=== PATIENT | female | born 1945 | race Caucasian/White ===

== ENCOUNTER 2016-04-14 17:06 | Inpatient (IN) | payer OTHER, MEDICARE ==
--- NOTE | ~2016-04-14 | HP ---
History And Physical [id number] [place]. [address] NAME: AMA ORTIZ : 49 STATUS : ADM IN [facility]#: [id number] AGE: 70 ADM/REG DATE : 04/14/16 MR#: [id number] REPORT SERV DATE: 04/14/16 DICTATED BY: PATRICK HENNESSY DATE: 04/14/16 REPORT STATUS : Draft TRANSCRIBED BY: MODAnnie DATE: 04/14/16 DATE OF ADMISSION: 04/14/2016 CHIEF COMPLAINT: Possible pneumonia. HISTORY OF PRESENT ILLNESS: The patient is a 70-year-old female followed by Dr. Lasha Kapoor, presented to his office today with fever, complains of shortness of breath, in his office reportedly her sat was 88%. She had a fever and by Dr. Kapoor's exam thought to have pneumonia, so she has been referred to the hospital as a direct admission for further treatment and evaluation. In talking to this patient, this patient reported that earlier on she had confusion, she could not keep track of her time, she had called her at work and was not able to tell him the exact time. The came home early, brought her to Dr. Lasha Kapoor's office. She was acting somewhat strange, but she feels that she has now back to her baseline. She reported that she was having an anxiety attack during that time. She denied any nausea or vomiting. She has had some chest pain. She has had a fever but no chills. She has not had any diaphoresis. No sick contacts. She denies any cough or upper respiratory type symptoms. She does complain of chronic abdominal pain that had been there since tissue removal from the abdomen for the breast reconstruction. She has no urinary symptoms. She has had chronic back pain. She offers no other problems or complaints. REVIEW OF SYSTEMS: A 12-point review of systems was otherwise negative. PAST MEDICAL HISTORY: Significant for lymphoma, breast cancer. No history of diabetes, hypertension, heart disease, sleep apnea, pulmonary emboli, or any other lung disease. She does have breast cancer that is metastatic to the lung. PAST SURGICAL HISTORY: Significant for left mastectomy in 2012, reconstruction of the left breast in 2004, hysterectomy, two benign tumors removed from the right breast at age 19, cholecystectomy, diskectomy, back surgery, lymph node removal from the groin in 2009, abdominal laparoscopy for abdominal pain, left port placement, bone marrow biopsy, right lung biopsy in 2012 for cancer, colon biopsy done by Dr. Hunt. ALLERGIES: NO KNOWN DRUG ALLERGIES. HOME MEDICATIONS: She takes hydrocortisone 10 mg three times daily. She takes morphine sustained release 30 mg every eight hours. She takes immediate release morphine 15 mg every three hours as needed for pain. Zofran 8 mg. She is on Remeron 30 mg at bedtime, and multivitamins. SOCIAL HISTORY: She denies use of alcohol, tobacco, or illicit substances. FAMILY HISTORY: Significant for heart disease in the brother who at age 55. No history of breast cancer in the family. PHYSICAL EXAMINATION: History And Physical [address] [address] NAME: AMA ORTIZ : 49 STATUS : ADM IN [facility]#: [id number] AGE: 70 ADM/REG DATE : 04/14/16 MR#: [id number] REPORT SERV DATE: 04/14/16 DICTATED BY: PATRICK HENNESSY DATE: 04/14/16 REPORT STATUS : Draft TRANSCRIBED BY: FREIDA DATE: 04/14/16 GENERAL: White female, lying on the bed, appears to be in no obvious respiratory distress. She is awake, alert, she is oriented. VITAL SIGNS: Blood pressure is 112/55, temperature is 97.6, pulse of 115, respiratory rate of 18, O2 saturation of 96% on room air in the hospital. HEENT: Head is normocephalic, atraumatic. Pupils are equal, round, and reactive to light. Extraocular muscles are intact. Sclerae are anicteric. Conjunctiva is normal. Oropharynx without lesion. Tongue protrusion midline. Uvula midline. NECK: Supple. No jugular venous distention. No carotid bruits or thyromegaly is appreciated. No lymphadenopathy in the neck is palpable. HEART: Regular rate and rhythm. No murmurs, rubs, or gallops are heard. Mild tachycardia is noted. LUNGS: Clear to auscultation on the left side. There is significant rhonchi and rales noted in the right lung base. No significant evidence of consolidation. ABDOMEN: Scaphoid, soft, nontender, good bowel sounds. No rebound or guarding. No organomegaly. EXTREMITIES: Without cyanosis, clubbing, or edema. NEUROLOGIC: Completely normal. LAB STUDIES: All pending at this time. IMPRESSION: 1. Possibility of pneumonia. 2. History of breast cancer with active chemo. 3. Chronic pain syndrome. 4. Cumbola's disease. PLAN: The patient will be admitted. IV fluids will be given. IV antibiotics will be given. We will check routine labs for chest x-ray. Home medications to be addressed when available from the pharmacy. At this time, she will be given pain control with IV Dilaudid, and then we can resume her morphine when exact doses are available. She remains a full code. SV/MODL Patrick Hennessy M.D. / [id number] CC: Saloni Muñoz M.D.
--- NOTE | ~2016-04-14 | DS ---
Discharge Summary [facility] [address] [facility] [place]. [address] NAME: AMA ORTIZ : 49 STATUS : ADM IN [facility]#: [id number] AGE: 70 ADM/REG DATE : 04/14/16 MR#: [id number] REPORT SERV DATE: 04/17/16 DICTATED BY: PATRICK HENNESSY DATE: 04/17/16 REPORT STATUS : Draft TRANSCRIBED BY: MODAnnie DATE: 04/17/16 ADMISSION DATE: 04/14/2016 DISCHARGE DATE: 04/17/2016 DISCHARGE DIAGNOSES: 1. Probable postobstructive pneumonia, right lung base. 2. Progression of metastatic breast cancer, stage IV. 3. Acute kidney injury. 4. Adrenal insufficiency due to metastatic disease. 5. Chronic pain syndrome. 6. Hyponatremia, now resolved. 7. Fall and metabolic encephalopathy, now resolved. 8. Abnormal liver function studies, currently resolved and normal. 9. Hypothyroidism. 10.Chronic pain syndrome. CONSULTANTS DURING THIS HOSPITALIZATION: Dr. Lasha Kapoor of Hematology-Oncology. INVASIVE PROCEDURES DONE DURING THIS HOSPITALIZATION: None. BRIEF HISTORY OF PRESENT ILLNESS: The patient is a 70-year-old female who presented from Dr. Lasha Kapoor's office as a direct admission with possibility of right lower lobe pneumonia. So she was admitted. For detailed history and physical exam, please see note dictated by myself on 04/14/2016. HOSPITAL COURSE: After being admitted to the hospital, this patient was pancultured. She was given IV antibiotics in thinking that she had metastatic cancer to the lungs. It was thought she had postobstructive pneumonia. So she was switched to Levaquin and Flagyl. She did not have a fever. Her blood cultures remained negative. A CT scan of the chest was done which showed progression of disease but no evidence of any definite pneumonia. She was noted to have acute kidney injury on her lab work. So she was given aggressive IV fluids. Her pain medications were continued. She was also noted to have abnormal liver function studies on admission. Strep antigen and Legionella antigens were done which were negative as well. She continued to improve and at this time she feels well enough. She is off the oxygen. She is saturating 95% on room air and she wants to go home and see Dr. Kapoor in followup in the outpatient setting. DISCHARGE DISPOSITION: Home. DISCHARGE ACTIVITY: As tolerated. DISCHARGE DIET: Low-sodium diet. DISCHARGE MEDICATIONS: Aspirin 162 mg once daily, Remeron 15 mg at bedtime and p.r.n. as needed for sleep, Prilosec 20 mg once daily p.r.n., oxycodone 20 mg three times daily, Levaquin 750 mg p.o. once daily, hair and skin multivitamins, diphenhydramine 50 mg daily Discharge Summary [address] [address] NAME: AMA ORTIZ : 49 STATUS : ADM IN PAT#: [id number] AGE: 70 ADM/REG DATE : 04/14/16 MR#: [id number] REPORT SERV DATE: 04/17/16 DICTATED BY: PATRICK HENNESSY DATE: 04/17/16 REPORT STATUS : Draft TRANSCRIBED BY: FREIDA DATE: 04/17/16 p.r.n., coenzyme Q10 one tablet daily, glucosamine chondroitin, hydrocortisone 1 tablet three times daily, Lorazepam 0.5 to 1 mg twice daily p.r.n. for anxiety, morphine IR 15 mg p.o. every six hours p.r.n., multivitamins, fish oil, Zofran 8 mg p.o. every 8 hours p.r.n. for nausea, and chemotherapy as per Dr. Kapoor. DISCHARGE FOLLOWUP: With Dr. Lasha Kapoor and . More than 30 minutes spent planning this patient's discharge, reconciling medications, writing prescriptions, discussing hospital care, and follow up with the patient and documenting this discharge. RAMONITA/FREIDA Patrick Hennessy M.D. / [id number] CC: Saloni Muñoz M.D.
[~2016-04-14 17:06] MED LIST: AMB10 PO; ASAB PO; ATV1 PO; AUG875 PO; BEN25 PO; CLARIT10 PO; CO Q-10100 MG PO; COQ-10200 MG OR; CORTEF5 PO; FISH-EPA1000 MG PO; GLUCCHONDR PO; HARD NAILS OR; LEVOTHYROXIN25 MCG PO; LUNESTA2 M1 OR; MELATONIN; MELATONIN1 M1 PO; MIRALAXPKT PO; MSCONTIN PO; MSIMMR15 PO; MSIMMREL PO; MULTIPLE VIT PO; OMEGA 3550 MG PO; OXECTA5 MG PO; OXYCON20 PO; PR25 PO; PRILOSEC OTC20 MG PO; PRILOSEC40 MG PO; PROBIOTIC PO; REG5 PO; REMERON30 MG PO; SUCR PO; TRAZ50 PO; ZANTAC 150 PO; ZOFRAN8 PO; ZYRTEC ALLGY10 MG PO; [UNRECOGNIZED DRUG - REMARK] PO
[2016-04-14 19:26] LABS: BASOPHILS 0.1 %; BASOPHILS ABSOLUTE 0.02 10/3/uL (0.0-0.16); EOSINOPHILS 0 %; HEMATOCRIT 33.7 % (36.0-48.0); HEMOGLOBIN 11.2 g/dL (12.0-16.0); IMMATURE GRANULOCYTES 0.7 %; LYMPHOCYTES 4.8 %; LYMPHOCYTES ABSOLUTE 0.68 10/3/uL (0.67-4.30); MEAN CORPUS HGB CONC 33.2 g/dL (32.0-36.0); MEAN CORPUSCULAR HEMOGLOB 30.4 pg (26.0-34.0); MEAN CORPUSCULAR VOLUME 91.6 fL (80-100); MEAN PLATELET VOLUME 10.2 fL (9.2-13.0); MONOCYTES 5.1 %; MONOCYTES ABSOLUTE 0.73 10/3/uL (0.21-1.20); NEUTROPHILS 89.3 %; NEUTROPHILS ABSOLUTE 12.77 10/3/uL (2.02-8.40); PLATELET COUNT 258 10/3/uL (150-400); RBC DISTRIBUTION WIDTH 15.8 % (12.0-16.0); RED CELL COUNT 3.68 10/6/uL (4.0-5.6)
[2016-04-14 19:27] LABS: MANUAL DIFF NO %; WHITE BLOOD CELLS 14.3 10/3/uL (4.5-10.5)
[2016-04-14 19:49] LABS: A/G RATIO 0.9 (0.7-1.9); ALBUMIN 2.9 G/DL (3.5-5.0); ALKALINE PHOSPHATASE 168 U/L (45-117); BUN (BLOOD UREA NITROGEN) 22 MG/DL (6-23); CALCIUM, SERUM 9.6 MG/DL (8.5-10.4); CHLORIDE, SERUM 91 MMOL/L (96-112); CO2 (CARBON DIOXIDE) 28 MMOL/L (24-34); CREATININE 1.68 MG/DL (0.55-1.02); GFR AFRICAN AMERICAN 36 ML/MIN (>=60); GFR NON AFRICAN AMERICAN 31 ML/MIN (>=60); GLOBULIN 3.2 G/DL (2.5-4.1); GLUCOSE, SERUM 96 MG/DL (60-99); SGOT(AST) 93 U/L (5-40); SGPT(ALT) 91 U/L (5-65); SODIUM, SERUM 127 MMOL/L (135-148); TOTAL BILIRUBIN 0.8 MG/DL (0-1.2); TOTAL PROTEIN 6.1 G/DL (6.0-8.5); TROPONIN I 0.14 NG/ML (<0.05)
[2016-04-14 20:50] LABS: PROCALCITONIN 22.95 ng/mL (<0.5)
[2016-04-15 04:03] LABS: ALBUMIN 2.5 G/DL (3.5-5.0); BUN (BLOOD UREA NITROGEN) 25 MG/DL (6-23); CALCIUM, SERUM 9.5 MG/DL (8.5-10.4); CHLORIDE, SERUM 94 MMOL/L (96-112); CO2 (CARBON DIOXIDE) 28 MMOL/L (24-34); CREATININE 1.35 MG/DL (0.55-1.02); GFR AFRICAN AMERICAN 47 ML/MIN (>=60); GFR NON AFRICAN AMERICAN 40 ML/MIN (>=60); GLUCOSE, SERUM 106 MG/DL (60-99); PHOSPHORUS, SERUM 2.6 MG/DL (2.5-4.5); POTASSIUM, SERUM 4.3 MMOL/L (3.5-5.3); SODIUM, SERUM 130 MMOL/L (135-148)
[2016-04-15 04:05] LABS: TROPONIN I 0.08 NG/ML (<0.05)
[2016-04-15 04:50] LABS: BASOPHILS 0.1 %; BASOPHILS ABSOLUTE 0.01 10/3/uL (0.0-0.16); EOSINOPHILS 0.1 %; EOSINOPHILS ABSOLUTE 0.01 10/3/uL (0.0-0.53); IMMATURE GRANULOCYTES 0.9 %; IMMATURE GRANULOCYTES ABSOLUTE 0.13 10/3/uL (0.0-0.11); LYMPHOCYTES 5.1 %; LYMPHOCYTES ABSOLUTE 0.72 10/3/uL (0.67-4.30); MEAN CORPUS HGB CONC 33.4 g/dL (32.0-36.0); MEAN CORPUSCULAR HEMOGLOB 30.3 pg (26.0-34.0); MEAN CORPUSCULAR VOLUME 90.6 fL (80-100); MEAN PLATELET VOLUME 9.8 fL (9.2-13.0); MONOCYTES 3.9 %; MONOCYTES ABSOLUTE 0.55 10/3/uL (0.21-1.20); NEUTROPHILS 89.9 %; NEUTROPHILS ABSOLUTE 12.75 10/3/uL (2.02-8.40); PLATELET COUNT 232 10/3/uL (150-400); RBC DISTRIBUTION WIDTH 15.9 % (12.0-16.0); WHITE BLOOD CELLS 14.2 10/3/uL (4.5-10.5)
[2016-04-15 04:53] LABS: HEMATOCRIT 29.9 % (36.0-48.0); MANUAL DIFF NO %
[2016-04-15] MEDS ORDERED: BEN25 PO ×2 (16:26→17:37)
[2016-04-15] MEDS ORDERED: OXYCON20 PO (16:27)
[2016-04-15] MEDS ORDERED: ASAB PO (17:36)
[2016-04-15] MEDS ORDERED: HAIR PO (17:37)
[2016-04-15] MEDS ORDERED: [UNRECOGNIZED DRUG - OTHER] PO (17:37)
[2016-04-15] MEDS ORDERED: GLUCCHONDR PO (17:38)
[2016-04-15] MEDS ORDERED: CO Q-10100 MG PO (17:38)
[2016-04-15] MEDS ORDERED: CORTEF5 PO (17:38)
[2016-04-15] MEDS ORDERED: ATV1 PO (17:39)
[2016-04-15] MEDS ORDERED: MSIMMR15 PO (17:39)
[2016-04-15] MEDS ORDERED: CENTRUM PO (17:39)
[2016-04-15] MEDS ORDERED: FISH-EPA1000 MG PO (17:40)
[2016-04-15] MEDS ORDERED: ZOFRAN8 PO (17:40)
[2016-04-15] MEDS ORDERED: PROTONIX PO (17:40)
[2016-04-15] MEDS ORDERED: OXYCONTIN30 MG PO (17:41)
[2016-04-15] MEDS ORDERED: CHEMOTHERAPY IV (17:44)
[2016-04-15] MEDS ORDERED: REMERON30 MG PO (17:45)
[2016-04-15] MEDS ORDERED: REM15 PO (17:46)
[2016-04-16 10:22] LABS: BASOPHILS 0.1 %; BASOPHILS ABSOLUTE 0.01 10/3/uL (0.0-0.16); EOSINOPHILS 0 %; HEMOGLOBIN 11.1 g/dL (12.0-16.0); IMMATURE GRANULOCYTES 0.7 %; IMMATURE GRANULOCYTES ABSOLUTE 0.08 10/3/uL (0.0-0.11); LYMPHOCYTES 7.8 %; LYMPHOCYTES ABSOLUTE 0.86 10/3/uL (0.67-4.30); MEAN CORPUS HGB CONC 33.7 g/dL (32.0-36.0); MEAN CORPUSCULAR VOLUME 91.9 fL (80-100); MEAN PLATELET VOLUME 9.6 fL (9.2-13.0); MONOCYTES 2.4 %; MONOCYTES ABSOLUTE 0.27 10/3/uL (0.21-1.20); NEUTROPHILS ABSOLUTE 9.84 10/3/uL (2.02-8.40); PLATELET COUNT 247 10/3/uL (150-400); RED CELL COUNT 3.58 10/6/uL (4.0-5.6); WHITE BLOOD CELLS 11.1 10/3/uL (4.5-10.5)
[2016-04-16 10:26] LABS: HEMATOCRIT 32.9 % (36.0-48.0); MANUAL DIFF NO %
[2016-04-16 10:34] LABS: ALBUMIN 2.6 G/DL (3.5-5.0); BUN (BLOOD UREA NITROGEN) 12 MG/DL (6-23); CALCIUM, SERUM 8.8 MG/DL (8.5-10.4); CHLORIDE, SERUM 111 MMOL/L (96-112); CO2 (CARBON DIOXIDE) 26 MMOL/L (24-34); CREATININE 0.98 MG/DL (0.55-1.02); GFR AFRICAN AMERICAN 69 ML/MIN (>=60); GFR NON AFRICAN AMERICAN 59 ML/MIN (>=60); GLUCOSE, SERUM 172 MG/DL (60-99); PHOSPHORUS, SERUM 3.1 MG/DL (2.5-4.5); POTASSIUM, SERUM 3.5 MMOL/L (3.5-5.3); SODIUM, SERUM 145 MMOL/L (135-148)
[2016-04-17 06:24] LABS: BASOPHILS 0.2 %; BASOPHILS ABSOLUTE 0.01 10/3/uL (0.0-0.16); EOSINOPHILS 0.6 %; EOSINOPHILS ABSOLUTE 0.04 10/3/uL (0.0-0.53); HEMOGLOBIN 9.2 g/dL (12.0-16.0); IMMATURE GRANULOCYTES 0.3 %; IMMATURE GRANULOCYTES ABSOLUTE 0.02 10/3/uL (0.0-0.11); LYMPHOCYTES 17.8 %; LYMPHOCYTES ABSOLUTE 1.14 10/3/uL (0.67-4.30); MEAN CORPUSCULAR VOLUME 90.9 fL (80-100); MEAN PLATELET VOLUME 9.6 fL (9.2-13.0); MONOCYTES ABSOLUTE 0.19 10/3/uL (0.21-1.20); NEUTROPHILS 78.1 %; PLATELET COUNT 237 10/3/uL (150-400); RBC DISTRIBUTION WIDTH 16.5 % (12.0-16.0); RED CELL COUNT 3.07 10/6/uL (4.0-5.6)
[2016-04-17 06:26] LABS: HEMATOCRIT 27.9 % (36.0-48.0); WHITE BLOOD CELLS 6.4 10/3/uL (4.5-10.5)
[2016-04-17 06:27] LABS: MANUAL DIFF NO %
[2016-04-17 06:31] LABS: A/G RATIO 0.7 (0.7-1.9); ALBUMIN 2.1 G/DL (3.5-5.0); CALCIUM, SERUM 7.9 MG/DL (8.5-10.4); CHLORIDE, SERUM 108 MMOL/L (96-112); CO2 (CARBON DIOXIDE) 25 MMOL/L (24-34); CREATININE 0.62 MG/DL (0.55-1.02); GFR AFRICAN AMERICAN 107 ML/MIN (>=60); GFR NON AFRICAN AMERICAN 93 ML/MIN (>=60); POTASSIUM, SERUM 3.2 MMOL/L (3.5-5.3); SGOT(AST) 27 U/L (5-40); SGPT(ALT) 35 U/L (5-65); SODIUM, SERUM 144 MMOL/L (135-148); TOTAL BILIRUBIN 0.4 MG/DL (0-1.2); TOTAL PROTEIN 5.1 G/DL (6.0-8.5)
[2016-04-17 06:32] LABS: ALKALINE PHOSPHATASE 102 U/L (45-117); BUN (BLOOD UREA NITROGEN) 8 MG/DL (6-23); GLUCOSE, SERUM 93 MG/DL (60-99)
[2016-04-17] MEDS ORDERED: LEVAQUIN750 MG PO (10:19)
[2016-07-08] MEDS ORDERED: MSIMMR15 PO (10:57)
[2016-07-08] MEDS ORDERED: PROTONIX PO (10:57)
[2016-07-08] MEDS ORDERED: ELIQUIS 5 MG TAB5 MG PO (10:57)
[2016-07-08] MEDS ORDERED: OXYCONTIN30 MG PO (10:57)
[2016-07-08] MEDS ORDERED: FLORASTOR250 MG PO (10:58)
[2016-07-08] MEDS ORDERED: CARDCD240 PO (10:58)
[2016-07-08] MEDS ORDERED: L40 PO (10:58)
[2016-07-08] MEDS ORDERED: KLOR-CON M2020 MEQ PO (10:59)
[2016-07-08] MEDS ORDERED: REM15 PO (10:59)
[2016-07-08] MEDS ORDERED: ZOFRAN8 PO (10:59)
[2016-07-08] MEDS ORDERED: ATV1 PO (10:59)
[2016-07-08] MEDS ORDERED: CORTEF5 PO (10:59)
[2016-07-08] MEDS ORDERED: FISH-EPA1000 MG PO (11:00)
[2016-07-08] MEDS ORDERED: CENTRUM PO (11:00)
[2016-07-08] MEDS ORDERED: TEARS PURE OPH (11:00)
[2016-07-08] MEDS ORDERED: MYCOSOINT TOP (11:00)
[2016-07-08] MEDS ORDERED: CO Q-10100 MG PO (11:01)
[2016-07-08] MEDS ORDERED: HAIR/SKIN/NAILS VIT PO (11:01)
[2016-07-08] MEDS ORDERED: CHEMO IV (11:02)
[2016-08-03] MEDS ORDERED: ASABAYER PO (13:03)
[2016-08-06] MEDS ORDERED: LEVAQUIN750 MG PO (15:06)
[2016-09-24] MEDS ORDERED: CARTIA XT240 MG/24 PO (16:08)
[2016-09-24] MEDS ORDERED: CONSTULOSE PO (16:09)
[2016-09-24] MEDS ORDERED: SPIRO50 PO (16:10)
[2016-09-24] MEDS ORDERED: ELIQUIS 5 MG TAB5 MG PO (16:12)
[2016-09-24] MEDS ORDERED: REFRESH OPH SO0.3 ML OPH (16:14)
[2016-09-26] MEDS ORDERED: OMNICEF300 PO (09:55)
[2016-09-26] MEDS ORDERED: MIRALAX POWDER1 PKT PO (09:56)
[2016-10-26] MEDS ORDERED: LAN125 PO (09:08)
[2016-10-26] MEDS ORDERED: REM15 PO (09:15)
[2016-10-30] MEDS ORDERED: ASAB PO (10:52)
[2016-10-30] MEDS ORDERED: BISR PR (10:55)
[2016-10-30] MEDS ORDERED: LEVAQUIN750 MG PO (11:00)
== END 2016-04-17 15:47 | disposition home or self-care (01) | DRG 180 ==
LOC: 2SO 17:06
PROVIDERS: Internal Medicine; Nurse Practitioner Family
DX: C78.00 Secondary malignant neoplasm of unspecified lung (principal); J18.9 Pneumonia, unspecified organism; G93.41 Metabolic encephalopathy; N17.9 Acute kidney failure, unspecified; C50.912 Malignant neoplasm of unspecified site of left female breast; E86.0 Dehydration; E27.1 Primary adrenocortical insufficiency; E27.40 Unspecified adrenocortical insufficiency; E87.1 Hypo-osmolality and hyponatremia; F41.0 Panic disorder [episodic paroxysmal anxiety]; E03.9 Hypothyroidism, unspecified; W18.30XA Fall on same level, unspecified, initial encounter; G89.29 Other chronic pain; Z98.890 Other specified postprocedural states; Z90.12 Acquired absence of left breast and nipple; Z85.72 Personal history of non-Hodgkin lymphomas; Z82.49 Family history of ischemic heart disease and other diseases of the circulatory system
CPT/HCPCS: 71020; 71260; 72170; 80053; 80069; 82330; 82962; 84132; 84145; 84484; 85025; 87040; 93005; A9270-GY; J0456; J1170; J1720; J1956; J2405; Q9967

== ENCOUNTER 2016-05-19 10:26 | Inpatient (IN) | payer OTHER, MEDICARE ==
--- NOTE | ~2016-05-19 | HP ---
History And Physical [id number] [facility] [place]. [address] NAME: AMA ORTIZ : 49 STATUS : ADM IN PAT#: [id number] AGE: 70 ADM/REG DATE : 05/19/16 MR#: [id number] REPORT SERV DATE: 05/19/16 DICTATED BY: ANNA ALONSO DATE: 05/19/16 REPORT STATUS : Draft TRANSCRIBED BY: MODL DATE: 05/19/16 DATE OF ADMISSION: 05/19/2016 CHIEF COMPLAINT: Heartburn, fever at home to 102, nausea, and vomiting. HISTORY OF PRESENT ILLNESS: This is a 70-year-old female who has undergone chemotherapy with Dr. Lasha Kapoor's office two days ago. She is getting Herceptin and gemcitabine. She states that with this new chemotherapy which she just got her second dose, she has had worsening heartburn. She said normally her heartburn relieved with Prilosec, Zantac, and Tums; however, currently it is not relieved. She has had some nausea, vomiting. She also has chronic abdominal pain, she says it may be worse now, slightly worse in the left lower quadrant. She did have a bowel movement yesterday. She had a fever of 102 x 1, currently afebrile in the ER. She states she stays cold. Denies any additional chills. She denies any dysuria. She had normal bowel movement yesterday. She also noted to start having some hoarseness today. REVIEW OF SYSTEMS: A complete review of systems was obtained and is negative with the exception of above HPI. PAST MEDICAL HISTORY: Includes stage IV breast cancer, initially diagnosed with breast cancer in 2002 with recurrence to the lung in 2011. She also has adrenal insufficiency due to metastatic disease. PAST SURGICAL HISTORY: Notable for mastectomy with TRAM flap, history of back surgery, cholecystectomy, diskectomy, also history of laparoscopy for abdominal pain, and left port placement. ALLERGIES: NO KNOWN DRUG ALLERGIES. FAMILY HISTORY: Negative for any cancer. SOCIAL HISTORY: Lives with her . Denies smoking or drinking. HOME MEDICATIONS: Aspirin 81 mg daily, coenzyme Q10 of 100 mg after supper, Benadryl p.r.n. for sleep, glucosamine chondroitin, Cortef 10 mg p.o. b.i.d., Ativan 1 mg at bedtime, Remeron 15 mg at bedtime and then p.r.n. for rest, immediate release morphine 15 mg every four hours p.r.n., Centrum tab, fish oil, Zofran p.r.n., OxyContin 20 t.i.d., and Protonix 40 mg daily status post second dose of Herceptin and gemcitabine. PHYSICAL EXAMINATION: VITAL SIGNS: Temperature 99.0, blood pressure 98/68, pulse of 148, respiratory rate 22, and saturating 88% on room air on admission. Heart rate has improved dramatically to the one teens and currently saturating in the mid 90s on 3 L. GENERAL: This is a chronically ill-appearing female, in no acute distress. She is pleasant and cooperative. She is alert and oriented x3. HEENT: Extraocular muscles are intact. Sclerae are anicteric. Mucous membranes are mildly History And Physical [address] [address] NAME: AMA ORTIZ : 49 STATUS : ADM IN [facility]#: [id number] AGE: 70 ADM/REG DATE : 05/19/16 MR#: [id number] REPORT SERV DATE: 05/19/16 DICTATED BY: ANNA ALONSO DATE: 05/19/16 REPORT STATUS : Draft TRANSCRIBED BY: FREIDA DATE: 05/19/16 dry. NECK: Supple. CARDIAC: Mildly tachycardic with no appreciable murmurs. LUNGS: Clear to auscultation bilaterally with no wheezes, rales, or rhonchi. ABDOMEN: Soft without obvious tenderness to palpation. EXTREMITIES: Warm, well perfused, with no edema. NEUROLOGIC: Cranial nerves 2 through 12 are grossly intact. Face is symmetric. Tongue is midline. Speech is fluent. PSYCHIATRIC: The patient is cooperative and appropriate. LABORATORY DATA: White blood cell count 4.6, hemoglobin 11, platelet count of 510. BMP with serum sodium 124, potassium 3.4, chloride 87. Lactate 0.9. Creatinine 1.1. Imaging including chest x-ray was notable for metastatic pulmonary nodules. No pneumonic- appearing infiltrate demonstrated. ASSESSMENT AND PLAN: 1. Heartburn with nausea and vomiting. Unclear if this is possibly related to her chemotherapy; however, Dr. Kapoor will follow along. We will continue antiemetics in addition to increasing PPI to twice a day. We will also have p.r.n. Tums available for her and add some Carafate. Given her age and her gender, we will also trend troponins, and EKG done in the emergency room shows no acute ischemia. She was noted to be in sinus tachycardia on admission, which has improved. 2. Mild acute kidney injury with hyponatremia. Suspect, the patient is volume depleted given she received chemo two days ago and she has had nausea, vomiting, and unable to keep anything down. We will hydrate her with normal saline and follow up with repeat blood work in the morning. 3. Hypokalemia, likely due to gastrointestinal losses. We will replete this and then follow up per protocol. 4. Abnormal LFTs. This has happened during previous admissions, which had resolved to normal. We will follow. 5. Mild anemia. The patient denies any evidence of blood loss likely related to chemotherapy and underlying chronic disease. We will follow. 6. Fever at home. We will monitor her here closely. She is not neutropenic. She does not have any obvious pneumonia on x-ray. We will continue to monitor her off antibiotics at this time. Blood cultures were drawn here, and we will follow up this and check a urine sample. 7. History of adrenal insufficiency. We will continue her home steroids. 8. Code status: The patient wishes to be a limited code status, no chest compressions and no intubations. 9. Deep vein thrombosis prophylaxis will be with enoxaparin. 10.Admission: The patient will be admitted inpatient to [facility]. NAEL/FREIDA Anna Kent History And Physical [address] [address] NAME: AMA ORTIZ : 49 STATUS : ADM IN [facility]#: [id number] AGE: 70 ADM/REG DATE : 05/19/16 MR#: [id number] REPORT SERV DATE: 05/19/16 DICTATED BY: ANNA ALONSO DATE: 05/19/16 REPORT STATUS : Draft TRANSCRIBED BY: FREIDA DATE: 05/19/16 MD Gavin / [id number] CC: Anna Alonso MD
--- NOTE | ~2016-05-19 | HP ---
History And Physical [id number] [place]. [address] NAME: AMA ORTIZ : 49 STATUS : ADM IN [facility]#: [id number] AGE: 70 ADM/REG DATE : 05/19/16 MR#: [id number] REPORT SERV DATE: 05/20/16 DICTATED BY: ANTONI MEI DATE: 05/20/16 REPORT STATUS : Draft TRANSCRIBED BY: MODL DATE: 05/20/16 DATE OF ADMISSION: 05/19/2016 The patient was admitted on the morning of 05/19/2016 for supportive care of dehydration, but late in the evening of 05/19/2016 and into the morning of 05/20/2016, the patient developed high fevers up to 104.0 with increasing tachycardia up to the 140s as well as tachypnea into the 30s and 40s and increasing hypoxia, now needing 5 L nasal cannula for an O2 saturation of 94%. As the evening progressed, the patient also had shown signs of increasing confusion to the point where she was having periods of overt disorientation and incoherence and was becoming borderline obtunded even with increasing lethargy, confusion, and agitation. This was quite disturbing to the staff and the patient's family. Once the fevers had begun in early evening shift, we obtained blood cultures and urinalysis and ordered a stat CT scan of the chest abdomen and pelvis. The patient was also started on broad-spectrum IV antibiotics including IV cefepime at 2 g IV q.6 and IV vancomycin. Repeat blood work showed deterioration in patient's infectious status with lowering of white blood cell count now with overt neutropenia with an absolute neutrophil count of 300. ABG showed hypoxia but no evidence of hypercapnic respiratory failure and a stat CT scan of the chest, abdomen, and pelvis showed no acute intraabdominal process, but the patient did have what looks like bilateral pneumonia changes possibly associated with her metastatic disease from breast cancer to her lungs. It was felt that the patient's clinical status has been deteriorating rapidly overnight despite supportive measures, so we have moved the patient to the intensive care unit in the director digital sales hours of 05/20/2016. It is clear that patient is on no intubation, but she and her family have agreed to BiPAP if necessary. She is also on no CPR, but the family and patient have agreed to pressors as needed in case the patient develops hypotension. By the time of transfer to the ICU, the patient's blood pressure was 106/50 and had been trending downward all night long. Total of 45 minutes at the bedside stabilizing patient was spent in critical care time. Primary diagnosis of sepsis, encephalopathy, and neutropenic fever. BETI/MODAnnie Antoni Mei M.D. / [id number] CC: History And Physical [address] [address] NAME: AMA ORTIZ : 49 STATUS : ADM IN [facility]#: [id number] AGE: 70 ADM/REG DATE : 05/19/16 MR#: [id number] REPORT SERV DATE: 05/20/16 DICTATED BY: ANTONI MEI DATE: 05/20/16 REPORT STATUS : Draft TRANSCRIBED BY: FREIDA DATE: 05/20/16 Jose Carlos Garzon DO
--- NOTE | ~2016-05-19 | DS ---
Discharge Summary [facility] [address] [place]. [address] NAME: AMA ORTIZ : 49 STATUS : DIS IN PAT#: [id number] AGE: 70 ADM/REG DATE : 05/19/16 MR#: [id number] REPORT SERV DATE: 06/01/16 DICTATED BY: PAU HUSSEIN DATE: 05/31/16 REPORT STATUS : Draft TRANSCRIBED BY: MODL DATE: 05/31/16 ADMISSION DATE: 05/19/2016 DISCHARGE DATE: 05/31/2016 CONDITION ON DISCHARGE: Stable. DISPOSITION: Discharged to home with home health nursing. ADVICE ON DISCHARGE: The patient to follow up with oncologist, Dr. Lasha Kapoor, within the next one week as scheduled and to follow up with primary care physician within the next one to two weeks. DIAGNOSES ON DISCHARGE: 1. Left lung pneumonia - resolved. 2. Septic shock, recent - resolved. 3. Acute transient atrial fibrillation with rapid ventricular response rate - the patient is in sinus rhythm now and her ventricular response rate is controlled with diltiazem CD. The patient is a candidate for Eliquis for a month and a prescription for this has been given to the patient. After this, it is up to the patient's primary care physician's discretion as to whether continue Eliquis or not. Same with the Cardizem CD also. 4. Metastatic breast cancer with metastasis to the lungs - stable, and this is followed by Dr. Kapoor. 5. Chronic abdominal pain which is stable at this time. BRIEF HOSPITAL COURSE: Please refer to nurse practitioner Rema iLao's interim discharge summary which is detailed up until 05/30/2016. I saw this patient only on 05/31/2016, ready for discharge. On 05/31/2016, the patient feels much better, denies any chest pain or shortness of breath, or nausea, vomiting. She feels well enough to go home and accept home health at this time. Hence, she is being discharged home with the following medications. Her new medications will include Cardizem CD 240 mg once a day, Eliquis 5 mg p.o. b.i.d., both of the above medications have been only dispensed for a month only. She will continue taking her regular home medications which will include aspirin 81 mg once a day, Benadryl 25 mg p.o. at bedtime p.r.n., CoQ10, glucosamine chondroitin 1 tablet once a day, hydrocortisone tablet 10 mg p.o. t.i.d., lorazepam 1 mg p.o. at bedtime, morphine immediate release 15 mg every four hours on an as-needed basis for pain, multiple vitamin tablets, omega-3 fatty acid tablets, Protonix 40 mg once a day, Zofran 8 mg p.o. t.i.d. p.r.n. for nausea, OxyContin 20 mg tablets p.o. t.i.d. for pain. The patient will continue Remeron 15 mg at bedtime and Remeron 15 mg at bedtime as needed also. The patient will continue chemotherapy as directed by her oncologist when she follows up with him within the next week. I do have the following most recent lab results on this patient. On 05/30/2016, her CBC shows WBC 6.3, hemoglobin 9, hematocrit 27.6, platelet count of 415. Electrolyte profile shows sodium 140, potassium 3.7, chloride 102, BUN 5, creatinine 0.6. Her most recent procalcitonin level came back normal at 0.27, but this was after she had Discharge Summary [address] [address] NAME: AMA ORTIZ : 49 STATUS : DIS IN [facility]#: [id number] AGE: 70 ADM/REG DATE : 05/19/16 MR#: [id number] REPORT SERV DATE: 06/01/16 DICTATED BY: PAU HUSSEIN DATE: 05/31/16 REPORT STATUS : Draft TRANSCRIBED BY: MODAnnie DATE: 05/31/16 been treated for pneumonia with 7 days of cefepime. Again, for details, please refer to interim discharge summary dictated by nurse practitioner, Rema Liao, on 05/30/2016. I have spent about 40 minutes in coordinating discharge care of this patient including face-to face encounter and summarizing this discharge. DANIELLE/FREIDA Pau Hussein M.D. / [id number] CC: Terrence Alonso MD
--- NOTE | ~2016-05-19 | IDS ---
Interim Discharge Summary [facility] [address] [place]. [address] NAME: AMA ORTIZ : 49 STATUS : ADM IN [facility]#: [id number] AGE: 70 ADM/REG DATE : 05/19/16 MR#: [id number] REPORT SERV DATE: 05/30/16 DICTATED BY: DATE: REPORT STATUS : Draft TRANSCRIBED BY: MODL DATE: 05/29/16 ADMISSION DATE: 05/19/2016 DISCHARGE DATE: Discharge date, I anticipate Sunday05/31/2016. Interim summary covers dates of service between 05/20/2016 and 05/29/2016. INTERIM DIAGNOSES: 1. Left lung pneumonia with recent septic shock, resolved. 2. Acute onset of atrial fibrillation with RVR. 3. Acute hypoxia. 4. Metastatic breast cancer. 5. Chronic abdominal pain. HOSPITAL COURSE: 1. Pneumonia, left lung recurrent. The patient initially suffered from septic shock related to left upper and left lower lobe pneumonia. The patient responded well to IV antibiotic therapy and was transitioned to Levaquin p.o. on 05/23/2016. The patient failed trial of p.o. antibiotics within 18 hours and was transitioned back to cefepime. The patient responded well to cefepime, and white count normalized with this therapy. ID recommended continuing cefepime through 05/30/2016 to complete seven-day antibiotic therapy to treat likely Pseudomonas resistant to Levaquin. No outpatient antibiotics will be indicated unless there is a change in status before discharge. Although patient has continued to improve, there is still concern over continuing pneumonia. Although procalcitonin has normalized, the patient's most recent chest x-ray still reports bilateral asymmetric infiltrates improving in central right lung now most pronounced in the left perihilar and left basilar region with small left pleural effusion. Upon the initial diagnosis of pneumonia with septic shock, the patient was presumed to have left lung pneumonia but now presents with continued multi-focal airspace consolidation. 2. Acute onset of atrial fibrillation with RVR. The patient was transferred to [address] [place] [address] on 05/24/2016 for acute onset of atrial fibrillation with RVR, heart rate as high as 187. Cardizem drip was initiated, and then patient was transitioned to Cardizem 30 mg p.o. every six hours. The patient's heart rate continued to remain elevated, and Cardizem was increased to 60 mg p.o. every six hours. The patient has responded fairly well to this treatment, and she has been in normal sinus rhythm with occasional episodes of tachycardia, maximum heart rate 122 today. The patient will be transitioned to Cardizem CD 240 mg tablet p.o. every a.m. in the morning with Cardizem 30 mg p.o. every six hours as needed for heart rate of 120 or higher sustained for more than 30 minutes following Cardizem CD. Cardizem 30 mg p.o. q.6 hours is only for hospitalization while transitioning to long-acting. The patient was placed on Eliquis, and prescription is provided in the front of the chart. Case Management was consulted to verify cost. At this time, the patient's insurance will cover drug with no out of pocket expense and no need for coupon. 3. Acute hypoxia. This is likely multi-focal to include lung metastases and recurrent Interim Discharge Summary [address] [address] NAME: AMA ORTIZ : 47 STATUS : ADM IN [facility]#: [id number] AGE: 70 ADM/REG DATE : 05/19/16 MR#: [id number] REPORT SERV DATE: 05/30/16 DICTATED BY: DATE: REPORT STATUS : Draft TRANSCRIBED BY: FREIDA DATE: 05/29/16 pneumonia resistant to treatment. The patient's supplemental oxygen needs have decreased, however, the patient is to requiring 2 L of oxygen. The patient needs trial of ambulation 24 hours prior to discharge to re-evaluate for home O2 needs. 4. Metastatic breast cancer with metastases to lung. The patient is under the outpatient care of Dr. Lasha Kapoor at [facility]. I plan to resume treatment next week with reduced dose. 5. Abdominal pain, chronic. The etiology is unclear although patient believes maybe related to TRAM flap in 2004. Continue pain medications as needed. The patient will need a scheduled bowel regimen to prevent constipation upon discharge. DISPOSITION: 1. Home likely Sunday after completion of antibiotic therapy. Social Work has been consulted for home health care upon discharge for medication management, vital sign checks, and physical therapy. 2. The patient will need new patient appointment with [facility] Cardiology for followup of new onset of atrial fibrillation with RVR. JASON/FREIDA BENNY Orellana / [id number] CC: Malcolm Vela II, MD
[2016-05-19 10:05] LABS: BASOPHILS 0 %; EOSINOPHILS 0.2 %; EOSINOPHILS ABSOLUTE 0.01 10/3/uL (0.0-0.53); IMMATURE GRANULOCYTES 0.2 %; IMMATURE GRANULOCYTES ABSOLUTE 0.01 10/3/uL (0.0-0.11); LYMPHOCYTES 8.2 %; LYMPHOCYTES ABSOLUTE 0.38 10/3/uL (0.67-4.30); MEAN CORPUS HGB CONC 34.3 g/dL (32.0-36.0); MEAN CORPUSCULAR HEMOGLOB 30.6 pg (26.0-34.0); MEAN CORPUSCULAR VOLUME 89.4 fL (80-100); MEAN PLATELET VOLUME 8.8 fL (9.2-13.0); MONOCYTES 0.6 %; MONOCYTES ABSOLUTE 0.03 10/3/uL (0.21-1.20); NEUTROPHILS 90.8 %; NEUTROPHILS ABSOLUTE 4.21 10/3/uL (2.02-8.40); RBC DISTRIBUTION WIDTH 17.1 % (12.0-16.0); RED CELL COUNT 3.59 10/6/uL (4.0-5.6); WHITE BLOOD CELLS 4.6 10/3/uL (4.5-10.5)
[2016-05-19 10:07] LABS: HEMATOCRIT 32.1 % (36.0-48.0); MANUAL DIFF NO %; PLATELET COUNT 515 10/3/uL (150-400)
[2016-05-19 10:20] LABS: CO2 (CARBON DIOXIDE) 27 MMOL/L (24-34); GFR AFRICAN AMERICAN 60 ML/MIN (>=60); GFR NON AFRICAN AMERICAN 52 ML/MIN (>=60); GLUCOSE, SERUM 86 MG/DL (60-99); POTASSIUM, SERUM 3.4 MMOL/L (3.5-5.3); SGOT(AST) 64 U/L (5-40); SGPT(ALT) 71 U/L (5-65); SODIUM, SERUM 124 MMOL/L (135-148); TROPONIN I 0.04 NG/ML (<0.05)
[2016-05-19 10:21] LABS: A/G RATIO 0.8 (0.7-1.9); ALKALINE PHOSPHATASE 218 U/L (45-117); BUN (BLOOD UREA NITROGEN) 14 MG/DL (6-23); CHLORIDE, SERUM 87 MMOL/L (96-112); GLOBULIN 3.8 G/DL (2.5-4.1); TOTAL PROTEIN 6.8 G/DL (6.0-8.5)
[~2016-05-19 10:26] MED LIST changes: +CENTRUM PO; +CHEMOTHERAPY IV; +HAIR PO; +LEVAQUIN750 MG PO; +OXYCONTIN30 MG PO; +PROTONIX PO; +REM15 PO; +[UNRECOGNIZED DRUG - OTHER] PO
[2016-05-19 10:58] LABS: LACTATE 0.9 MMOL/L (0.3-2.4)
[2016-05-20 00:11] LABS: MEAN CORPUSCULAR HEMOGLOB 30.8 pg (26.0-34.0); MEAN PLATELET VOLUME 8.5 fL (9.2-13.0); PLATELET COUNT 369 10/3/uL (150-400); RBC DISTRIBUTION WIDTH 16.8 % (12.0-16.0); RED CELL COUNT 3.25 10/6/uL (4.0-5.6)
[2016-05-20 00:20] LABS: HEMATOCRIT 28.6 % (36.0-48.0); WHITE BLOOD CELLS 0.6 10/3/uL (4.5-10.5)
[2016-05-20 00:21] LABS: MANUAL DIFF YES %
[2016-05-20 00:31] LABS: A/G RATIO 0.7 (0.7-1.9); ALBUMIN 2.4 G/DL (3.5-5.0); ALKALINE PHOSPHATASE 170 U/L (45-117); BUN (BLOOD UREA NITROGEN) 14 MG/DL (6-23); CHLORIDE, SERUM 90 MMOL/L (96-112); CO2 (CARBON DIOXIDE) 26 MMOL/L (24-34); CREATININE 0.76 MG/DL (0.55-1.02); GFR AFRICAN AMERICAN 93 ML/MIN (>=60); GFR NON AFRICAN AMERICAN 81 ML/MIN (>=60); GLOBULIN 3.3 G/DL (2.5-4.1); GLUCOSE, SERUM 96 MG/DL (60-99); POTASSIUM, SERUM 4.1 MMOL/L (3.5-5.3); SGOT(AST) 47 U/L (5-40); SGPT(ALT) 50 U/L (5-65); SODIUM, SERUM 125 MMOL/L (135-148); TOTAL BILIRUBIN 1.4 MG/DL (0-1.2); TOTAL PROTEIN 5.7 G/DL (6.0-8.5)
[2016-05-20 00:48] LABS: BAND NEUTROPHILS 28 %; LYMPHOCYTES 47 %; LYMPHOCYTES ABSOLUTE (CALC) 0.28 10/3/uL (0.67-4.30); MONOCYTES 2 %; MONOCYTES ABSOLUTE (CALC) 0.01 10/3/uL (0.21-1.20); NEUTROPHILS ABSOLUTE (CALC) 0.31 10/3/uL (2.02-8.40); PLATELET ESTIMATE ADQ (ADEQUATE); SEGMENTED NEUTROPHIL (0) 23 %; TOTAL NUCLEATED CELLS 100
[2016-05-20 00:49] LABS: RBC MORPHOLOGY NORM (NORMAL)
[2016-05-20 01:25] LABS: PROCALCITONIN 3.28 ng/mL (<0.5)
[2016-05-20 02:19] LABS: WBC (NOT ORDERED) (RFLEX) 0 (0-5)
[2016-05-20 02:54] LABS: ASCORBIC ACID (UR NOT ORDER) NEG (NEG); BILIRUBIN, URINE NEGATIVE (NEG); KETONE, URINE NEGATIVE (NEG); LEUKOCYTE ESTERASE(NOT OR NEG (NEG)
[2016-05-20 04:17] LABS: HEMATOCRIT 30.1 % (36.0-48.0); HEMOGLOBIN 10.4 g/dL (12.0-16.0); MEAN CORPUS HGB CONC 34.6 g/dL (32.0-36.0); MEAN CORPUSCULAR HEMOGLOB 30.7 pg (26.0-34.0); MEAN CORPUSCULAR VOLUME 88.8 fL (80-100); PLATELET COUNT 432 10/3/uL (150-400); RBC DISTRIBUTION WIDTH 17.2 % (12.0-16.0); RED CELL COUNT 3.39 10/6/uL (4.0-5.6)
[2016-05-20 04:19] LABS: WHITE BLOOD CELLS 0.4 10/3/uL (4.5-10.5)
[2016-05-20 04:20] LABS: MANUAL DIFF YES %
[2016-05-20 04:24] LABS: INTERNATIONAL NORMAL RATI 1.3 UNITS (-); PROTIME (NOT ORD) 16.1 SEC (12.0-14.5)
[2016-05-20 04:31] LABS: BUN (BLOOD UREA NITROGEN) 13 MG/DL (6-23); CALCIUM, SERUM 8.1 MG/DL (8.5-10.4); CHLORIDE, SERUM 90 MMOL/L (96-112); CO2 (CARBON DIOXIDE) 26 MMOL/L (24-34); CREATININE 0.83 MG/DL (0.55-1.02); GFR AFRICAN AMERICAN 84 ML/MIN (>=60); GFR NON AFRICAN AMERICAN 72 ML/MIN (>=60); GLUCOSE, SERUM 80 MG/DL (60-99); POTASSIUM, SERUM 3.4 MMOL/L (3.5-5.3); SODIUM, SERUM 127 MMOL/L (135-148)
[2016-05-20 04:34] LABS: A/G RATIO 0.7 (0.7-1.9); ALBUMIN 2.4 G/DL (3.5-5.0); ALKALINE PHOSPHATASE 168 U/L (45-117); BUN (BLOOD UREA NITROGEN) 13 MG/DL (6-23); CALCIUM, SERUM 8.1 MG/DL (8.5-10.4); CHLORIDE, SERUM 89 MMOL/L (96-112); CO2 (CARBON DIOXIDE) 26 MMOL/L (24-34); CREATININE 0.86 MG/DL (0.55-1.02); DIRECT BILIRUBIN 0.4 MG/DL (0.0-0.4); GFR AFRICAN AMERICAN 80 ML/MIN (>=60); GFR NON AFRICAN AMERICAN 69 ML/MIN (>=60); GLOBULIN 3.3 G/DL (2.5-4.1); GLUCOSE, SERUM 78 MG/DL (60-99); INDIRECT BILIRUBIN(NOT ORDER) 1.1 MG/DL (0.1-0.9); POTASSIUM, SERUM 3.3 MMOL/L (3.5-5.3); SGOT(AST) 54 U/L (5-40); SGPT(ALT) 51 U/L (5-65); SODIUM, SERUM 127 MMOL/L (135-148); TOTAL BILIRUBIN 1.5 MG/DL (0-1.2); TOTAL PROTEIN 5.7 G/DL (6.0-8.5)
[2016-05-20 07:19] LABS: BAND NEUTROPHILS 20 %; LYMPHOCYTES 31 %; LYMPHOCYTES ABSOLUTE (CALC) 0.12 10/3/uL (0.67-4.30); MONOCYTES 5 %; MONOCYTES ABSOLUTE (CALC) 0.02 10/3/uL (0.21-1.20); NEUTROPHILS ABSOLUTE (CALC) 0.26 10/3/uL (2.02-8.40); PLATELET ESTIMATE ADQ (ADEQUATE); RBC MORPHOLOGY NORM (NORMAL); SEGMENTED NEUTROPHIL (0) 44 %; TOTAL NUCLEATED CELLS 100
[2016-05-20 08:32] LABS: ALBUMIN 2.6 G/DL (3.5-5.0); DIRECT BILIRUBIN 0.4 MG/DL (0.0-0.4); TOTAL PROTEIN 5.4 G/DL (6.0-8.5)
[2016-05-20 08:38] LABS: INDIRECT BILIRUBIN(NOT ORDER) 0.5 MG/DL (0.1-0.9); TOTAL BILIRUBIN 0.9 MG/DL (0-1.2)
[2016-05-20 19:56] LABS: PROCALCITONIN 20.76 ng/mL (<0.5)
[2016-05-21 03:26] LABS: HEMOGLOBIN 8.5 g/dL (12.0-16.0); MEAN CORPUS HGB CONC 34.7 g/dL (32.0-36.0); MEAN CORPUSCULAR HEMOGLOB 30.9 pg (26.0-34.0); MEAN CORPUSCULAR VOLUME 89.1 fL (80-100); MEAN PLATELET VOLUME 8.5 fL (9.2-13.0); PLATELET COUNT 345 10/3/uL (150-400); RBC DISTRIBUTION WIDTH 17.9 % (12.0-16.0); RED CELL COUNT 2.75 10/6/uL (4.0-5.6)
[2016-05-21 03:27] LABS: HEMATOCRIT 24.5 % (36.0-48.0); MANUAL DIFF YES %; WHITE BLOOD CELLS 5.2 10/3/uL (4.5-10.5)
[2016-05-21 03:33] LABS: INTERNATIONAL NORMAL RATI 1.5 UNITS (-); PROTIME (NOT ORD) 18.1 SEC (12.0-14.5)
[2016-05-21 03:48] LABS: ALBUMIN 2.3 G/DL (3.5-5.0); BUN (BLOOD UREA NITROGEN) 11 MG/DL (6-23); CALCIUM, SERUM 7.6 MG/DL (8.5-10.4); CO2 (CARBON DIOXIDE) 22 MMOL/L (24-34); CREATININE 0.63 MG/DL (0.55-1.02); GFR AFRICAN AMERICAN 107 ML/MIN (>=60); GFR NON AFRICAN AMERICAN 92 ML/MIN (>=60); PHOSPHORUS, SERUM 1.9 MG/DL (2.5-4.5); POTASSIUM, SERUM 3.9 MMOL/L (3.5-5.3)
[2016-05-21 03:49] LABS: CHLORIDE, SERUM 106 MMOL/L (96-112); GLUCOSE, SERUM 159 MG/DL (60-99); SODIUM, SERUM 139 MMOL/L (135-148)
[2016-05-21 03:52] LABS: ANISOCYTOSIS 1+ (5-10/OIF) (0-5/OIF); BAND NEUTROPHILS 32 %; LYMPHOCYTES 8 %; LYMPHOCYTES ABSOLUTE (CALC) 0.42 10/3/uL (0.67-4.30); MONOCYTES 3 %; MONOCYTES ABSOLUTE (CALC) 0.16 10/3/uL (0.21-1.20); NEUTROPHILS ABSOLUTE (CALC) 4.63 10/3/uL (2.02-8.40); PLATELET ESTIMATE ADQ (ADEQUATE); SEGMENTED NEUTROPHIL (0) 57 %; TOTAL NUCLEATED CELLS 100
[2016-05-21 04:05] LABS: PROCALCITONIN 14.01 ng/mL (<0.5)
[2016-05-22 05:18] LABS: HEMATOCRIT 25.4 % (36.0-48.0); HEMOGLOBIN 8.6 g/dL (12.0-16.0); MEAN CORPUS HGB CONC 33.9 g/dL (32.0-36.0); MEAN CORPUSCULAR HEMOGLOB 30.7 pg (26.0-34.0); MEAN CORPUSCULAR VOLUME 90.7 fL (80-100); MEAN PLATELET VOLUME 8.8 fL (9.2-13.0); PLATELET COUNT 368 10/3/uL (150-400); RBC DISTRIBUTION WIDTH 18.1 % (12.0-16.0)
[2016-05-22 05:19] LABS: MANUAL DIFF YES %; WHITE BLOOD CELLS 7.3 10/3/uL (4.5-10.5)
[2016-05-22 05:38] LABS: BUN (BLOOD UREA NITROGEN) 10 MG/DL (6-23); CALCIUM, SERUM 7.9 MG/DL (8.5-10.4); CHLORIDE, SERUM 108 MMOL/L (96-112); CO2 (CARBON DIOXIDE) 24 MMOL/L (24-34); CREATININE 0.53 MG/DL (0.55-1.02); GFR AFRICAN AMERICAN 113 ML/MIN (>=60); GFR NON AFRICAN AMERICAN 98 ML/MIN (>=60); GLUCOSE, SERUM 144 MG/DL (60-99); PHOSPHORUS, SERUM 1.8 MG/DL (2.5-4.5); POTASSIUM, SERUM 3.6 MMOL/L (3.5-5.3); SODIUM, SERUM 142 MMOL/L (135-148)
[2016-05-22 05:55] LABS: BAND NEUTROPHILS 6 %; LYMPHOCYTES 1 %; LYMPHOCYTES ABSOLUTE (CALC) 0.07 10/3/uL (0.67-4.30); MONOCYTES 5 %; MONOCYTES ABSOLUTE (CALC) 0.37 10/3/uL (0.21-1.20); NEUTROPHILS ABSOLUTE (CALC) 6.86 10/3/uL (2.02-8.40); SEGMENTED NEUTROPHIL (0) 88 %; TOTAL NUCLEATED CELLS 100
[2016-05-22 05:56] LABS: ANISOCYTOSIS 1+ (5-10/OIF) (0-5/OIF); PLATELET ESTIMATE ADQ (ADEQUATE)
[2016-05-22 07:03] LABS: PROCALCITONIN 6.81 ng/mL (<0.5)
[2016-05-23 04:35] LABS: HEMATOCRIT 25.2 % (36.0-48.0); HEMOGLOBIN 8.7 g/dL (12.0-16.0); MEAN CORPUS HGB CONC 34.5 g/dL (32.0-36.0); MEAN CORPUSCULAR HEMOGLOB 31.4 pg (26.0-34.0); MEAN PLATELET VOLUME 8.6 fL (9.2-13.0); PLATELET COUNT 318 10/3/uL (150-400); RBC DISTRIBUTION WIDTH 18.2 % (12.0-16.0); RED CELL COUNT 2.77 10/6/uL (4.0-5.6); WHITE BLOOD CELLS 9.2 10/3/uL (4.5-10.5)
[2016-05-23 04:36] LABS: MANUAL DIFF YES %
[2016-05-23 04:58] LABS: BUN (BLOOD UREA NITROGEN) 11 MG/DL (6-23); CHLORIDE, SERUM 108 MMOL/L (96-112); CO2 (CARBON DIOXIDE) 26 MMOL/L (24-34); CREATININE 0.58 MG/DL (0.55-1.02); GFR AFRICAN AMERICAN 110 ML/MIN (>=60); GFR NON AFRICAN AMERICAN 95 ML/MIN (>=60); GLUCOSE, SERUM 149 MG/DL (60-99); PHOSPHORUS, SERUM 1.7 MG/DL (2.5-4.5); POTASSIUM, SERUM 3.4 MMOL/L (3.5-5.3); SODIUM, SERUM 143 MMOL/L (135-148)
[2016-05-23 05:04] LABS: ANISOCYTOSIS 1+ (5-10/OIF) (0-5/OIF); BAND NEUTROPHILS 9 %; IMMATURE GRANS ABSOLUTE (CALC) 0.55 10/3/uL (0.0-0.11); LYMPHOCYTES 4 %; LYMPHOCYTES ABSOLUTE (CALC) 0.37 10/3/uL (0.67-4.30); METAMYELOCYTES 3 %; MONOCYTES 6 %; MONOCYTES ABSOLUTE (CALC) 0.55 10/3/uL (0.21-1.20); MYELOCYTES 3 %; NEUTROPHILS ABSOLUTE (CALC) 7.73 10/3/uL (2.02-8.40); PLATELET ESTIMATE ADQ (ADEQUATE); SEGMENTED NEUTROPHIL (0) 75 %; TOTAL NUCLEATED CELLS 100
[2016-05-24 04:21] LABS: MEAN CORPUS HGB CONC 33.4 g/dL (32.0-36.0); MEAN CORPUSCULAR HEMOGLOB 30.5 pg (26.0-34.0); MEAN CORPUSCULAR VOLUME 91.4 fL (80-100); NUCLEATED RED BLOOD CELLS 4.9 /100WBC (0-0); RBC DISTRIBUTION WIDTH 18.3 % (12.0-16.0)
[2016-05-24 04:22] LABS: HEMATOCRIT 31.7 % (36.0-48.0); HEMOGLOBIN 10.6 g/dL (12.0-16.0); MANUAL DIFF YES %; PLATELET COUNT 426 10/3/uL (150-400); RED CELL COUNT 3.47 10/6/uL (4.0-5.6); WHITE BLOOD CELLS 16.5 10/3/uL (4.5-10.5)
[2016-05-24 04:39] LABS: ALBUMIN 2.5 G/DL (3.5-5.0); BUN (BLOOD UREA NITROGEN) 9 MG/DL (6-23); CALCIUM, SERUM 8.6 MG/DL (8.5-10.4); CHLORIDE, SERUM 102 MMOL/L (96-112); CO2 (CARBON DIOXIDE) 27 MMOL/L (24-34); CREATININE 0.75 MG/DL (0.55-1.02); GFR AFRICAN AMERICAN 95 ML/MIN (>=60); GFR NON AFRICAN AMERICAN 82 ML/MIN (>=60); POTASSIUM, SERUM 3.3 MMOL/L (3.5-5.3); SGOT(AST) 55 U/L (5-40); SGPT(ALT) 49 U/L (5-65); SODIUM, SERUM 140 MMOL/L (135-148)
[2016-05-24 04:41] LABS: ANISOCYTOSIS 1+ (5-10/OIF) (0-5/OIF); BAND NEUTROPHILS 5 %; IMMATURE GRANS ABSOLUTE (CALC) 1.32 10/3/uL (0.0-0.11); LYMPHOCYTES 7 %; LYMPHOCYTES ABSOLUTE (CALC) 1.16 10/3/uL (0.67-4.30); METAMYELOCYTES 5 %; MONOCYTES 9 %; MONOCYTES ABSOLUTE (CALC) 1.49 10/3/uL (0.21-1.20); MYELOCYTES 3 %; NEUTROPHILS ABSOLUTE (CALC) 12.54 10/3/uL (2.02-8.40); PLATELET ESTIMATE SLT INC (ADEQUATE); SEGMENTED NEUTROPHIL (0) 71 %; TOTAL NUCLEATED CELLS 100
[2016-05-24 04:53] LABS: GLUCOSE, SERUM 101 MG/DL (60-99)
[2016-05-24 04:54] LABS: A/G RATIO 0.6 (0.7-1.9); ALKALINE PHOSPHATASE 150 U/L (45-117); TOTAL BILIRUBIN 0.4 MG/DL (0-1.2); TOTAL PROTEIN 6.5 G/DL (6.0-8.5)
[2016-05-25 05:17] LABS: HEMATOCRIT 29.9 % (36.0-48.0); MEAN CORPUS HGB CONC 33.4 g/dL (32.0-36.0); MEAN CORPUSCULAR HEMOGLOB 30.7 pg (26.0-34.0); MEAN CORPUSCULAR VOLUME 91.7 fL (80-100); MEAN PLATELET VOLUME 9.4 fL (9.2-13.0); PLATELET COUNT 340 10/3/uL (150-400); RBC DISTRIBUTION WIDTH 18.1 % (12.0-16.0); RED CELL COUNT 3.26 10/6/uL (4.0-5.6); WHITE BLOOD CELLS 10.3 10/3/uL (4.5-10.5)
[2016-05-25 05:25] LABS: BUN (BLOOD UREA NITROGEN) 7 MG/DL (6-23); CALCIUM, SERUM 7.8 MG/DL (8.5-10.4); CHLORIDE, SERUM 101 MMOL/L (96-112); CO2 (CARBON DIOXIDE) 28 MMOL/L (24-34); CREATININE 0.52 MG/DL (0.55-1.02); GFR AFRICAN AMERICAN 114 ML/MIN (>=60); GFR NON AFRICAN AMERICAN 98 ML/MIN (>=60); POTASSIUM, SERUM 3.1 MMOL/L (3.5-5.3); SODIUM, SERUM 140 MMOL/L (135-148)
[2016-05-25 05:26] LABS: GLUCOSE, SERUM 78 MG/DL (60-99)
[2016-05-25 06:26] LABS: PROCALCITONIN 0.83 ng/mL (<0.5)
[2016-05-25 07:39] LABS: BAND NEUTROPHILS 3 %; IMMATURE GRANS ABSOLUTE (CALC) 0.52 10/3/uL (0.0-0.11); LYMPHOCYTES 6 %; LYMPHOCYTES ABSOLUTE (CALC) 0.62 10/3/uL (0.67-4.30); METAMYELOCYTES 4 %; MONOCYTES 10 %; MONOCYTES ABSOLUTE (CALC) 1.03 10/3/uL (0.21-1.20); MYELOCYTES 1 %; NEUTROPHILS ABSOLUTE (CALC) 8.14 10/3/uL (2.02-8.40); SEGMENTED NEUTROPHIL (0) 76 %; TOTAL NUCLEATED CELLS 100
[2016-05-25 07:40] LABS: ANISOCYTOSIS 1+ (5-10/OIF) (0-5/OIF); NUCLEATED RED BLOOD CELLS 6 /100WBC (0)
[2016-05-25 07:41] LABS: PLATELET ESTIMATE ADQ (ADEQUATE); POLYCHROMASIA 1+ (2-5/OIF) (0-1/OIF)
[2016-05-26 04:13] LABS: HEMATOCRIT 27.7 % (36.0-48.0); HEMOGLOBIN 9.3 g/dL (12.0-16.0); MEAN CORPUS HGB CONC 33.6 g/dL (32.0-36.0); MEAN CORPUSCULAR HEMOGLOB 30.9 pg (26.0-34.0); MEAN PLATELET VOLUME 9.2 fL (9.2-13.0); PLATELET COUNT 315 10/3/uL (150-400); RED CELL COUNT 3.01 10/6/uL (4.0-5.6); WHITE BLOOD CELLS 8.1 10/3/uL (4.5-10.5)
[2016-05-26 04:14] LABS: MANUAL DIFF YES %
[2016-05-26 04:25] LABS: BUN (BLOOD UREA NITROGEN) 8 MG/DL (6-23); CALCIUM, SERUM 7.7 MG/DL (8.5-10.4); CHLORIDE, SERUM 102 MMOL/L (96-112); CO2 (CARBON DIOXIDE) 32 MMOL/L (24-34); CREATININE 0.63 MG/DL (0.55-1.02); GFR AFRICAN AMERICAN 107 ML/MIN (>=60); GFR NON AFRICAN AMERICAN 92 ML/MIN (>=60); POTASSIUM, SERUM 3.2 MMOL/L (3.5-5.3); SODIUM, SERUM 141 MMOL/L (135-148)
[2016-05-26 04:31] LABS: GLUCOSE, SERUM 117 MG/DL (60-99)
[2016-05-26 05:20] LABS: SEGMENTED NEUTROPHIL (0) 81 %; TOTAL NUCLEATED CELLS 100
[2016-05-26 05:21] LABS: ANISOCYTOSIS 1+ (5-10/OIF) (0-5/OIF); BAND NEUTROPHILS 6 %; IMMATURE GRANS ABSOLUTE (CALC) 0.16 10/3/uL (0.0-0.11); LYMPHOCYTES 6 %; LYMPHOCYTES ABSOLUTE (CALC) 0.49 10/3/uL (0.67-4.30); METAMYELOCYTES 2 %; MONOCYTES 5 %; MONOCYTES ABSOLUTE (CALC) 0.41 10/3/uL (0.21-1.20); NEUTROPHILS ABSOLUTE (CALC) 7.05 10/3/uL (2.02-8.40); PLATELET ESTIMATE ADQ (ADEQUATE)
[2016-05-27 05:46] LABS: BASOPHILS 0.2 %; BASOPHILS ABSOLUTE 0.01 10/3/uL (0.0-0.16); EOSINOPHILS 1.2 %; EOSINOPHILS ABSOLUTE 0.08 10/3/uL (0.0-0.53); HEMATOCRIT 25.7 % (36.0-48.0); HEMOGLOBIN 8.5 g/dL (12.0-16.0); IMMATURE GRANULOCYTES 4.5 %; IMMATURE GRANULOCYTES ABSOLUTE 0.29 10/3/uL (0.0-0.11); LYMPHOCYTES 13.9 %; LYMPHOCYTES ABSOLUTE 0.89 10/3/uL (0.67-4.30); MEAN CORPUS HGB CONC 33.1 g/dL (32.0-36.0); MEAN CORPUSCULAR HEMOGLOB 30.6 pg (26.0-34.0); MEAN CORPUSCULAR VOLUME 92.4 fL (80-100); MEAN PLATELET VOLUME 9.2 fL (9.2-13.0); MONOCYTES 9.8 %; MONOCYTES ABSOLUTE 0.63 10/3/uL (0.21-1.20); NEUTROPHILS 70.4 %; NEUTROPHILS ABSOLUTE 4.52 10/3/uL (2.02-8.40); PLATELET COUNT 315 10/3/uL (150-400); RBC DISTRIBUTION WIDTH 18.1 % (12.0-16.0); RED CELL COUNT 2.78 10/6/uL (4.0-5.6); WHITE BLOOD CELLS 6.4 10/3/uL (4.5-10.5)
[2016-05-27 05:47] LABS: MANUAL DIFF NO %
[2016-05-27 06:05] LABS: BUN (BLOOD UREA NITROGEN) 5 MG/DL (6-23); CALCIUM, SERUM 7.8 MG/DL (8.5-10.4); CHLORIDE, SERUM 103 MMOL/L (96-112); CO2 (CARBON DIOXIDE) 31 MMOL/L (24-34); CREATININE 0.48 MG/DL (0.55-1.02); GFR AFRICAN AMERICAN 117 ML/MIN (>=60); GFR NON AFRICAN AMERICAN 101 ML/MIN (>=60); GLUCOSE, SERUM 111 MG/DL (60-99); POTASSIUM, SERUM 3.3 MMOL/L (3.5-5.3); SODIUM, SERUM 141 MMOL/L (135-148)
[2016-05-27 07:11] LABS: PROCALCITONIN 0.27 ng/mL (<0.5)
[2016-05-28 10:23] LABS: BASOPHILS 0.3 %; BASOPHILS ABSOLUTE 0.02 10/3/uL (0.0-0.16); EOSINOPHILS 1.2 %; EOSINOPHILS ABSOLUTE 0.09 10/3/uL (0.0-0.53); IMMATURE GRANULOCYTES 1.3 %; LYMPHOCYTES 15.3 %; LYMPHOCYTES ABSOLUTE 1.14 10/3/uL (0.67-4.30); MEAN CORPUS HGB CONC 32.6 g/dL (32.0-36.0); MEAN CORPUSCULAR HEMOGLOB 30.7 pg (26.0-34.0); MEAN CORPUSCULAR VOLUME 94.2 fL (80-100); MONOCYTES 11.4 %; MONOCYTES ABSOLUTE 0.85 10/3/uL (0.21-1.20); NEUTROPHILS 70.5 %; NEUTROPHILS ABSOLUTE 5.26 10/3/uL (2.02-8.40); PLATELET COUNT 408 10/3/uL (150-400); RBC DISTRIBUTION WIDTH 18.4 % (12.0-16.0); RED CELL COUNT 3.26 10/6/uL (4.0-5.6); WHITE BLOOD CELLS 7.5 10/3/uL (4.5-10.5)
[2016-05-28 10:24] LABS: HEMATOCRIT 30.7 % (36.0-48.0); MANUAL DIFF NO %
[2016-05-28 10:35] LABS: BUN (BLOOD UREA NITROGEN) 5 MG/DL (6-23); CALCIUM, SERUM 8.4 MG/DL (8.5-10.4); CHLORIDE, SERUM 102 MMOL/L (96-112); CO2 (CARBON DIOXIDE) 29 MMOL/L (24-34); CREATININE 0.66 MG/DL (0.55-1.02); GFR AFRICAN AMERICAN 105 ML/MIN (>=60); GFR NON AFRICAN AMERICAN 91 ML/MIN (>=60); GLUCOSE, SERUM 110 MG/DL (60-99); POTASSIUM, SERUM 3.7 MMOL/L (3.5-5.3); SODIUM, SERUM 140 MMOL/L (135-148)
[2016-05-29 04:55] LABS: BASOPHILS 0.2 %; BASOPHILS ABSOLUTE 0.01 10/3/uL (0.0-0.16); EOSINOPHILS 0.9 %; EOSINOPHILS ABSOLUTE 0.06 10/3/uL (0.0-0.53); HEMATOCRIT 26.7 % (36.0-48.0); HEMOGLOBIN 8.7 g/dL (12.0-16.0); IMMATURE GRANULOCYTES 1.1 %; IMMATURE GRANULOCYTES ABSOLUTE 0.07 10/3/uL (0.0-0.11); LYMPHOCYTES 11.9 %; LYMPHOCYTES ABSOLUTE 0.79 10/3/uL (0.67-4.30); MANUAL DIFF NO %; MEAN CORPUS HGB CONC 32.6 g/dL (32.0-36.0); MEAN CORPUSCULAR HEMOGLOB 30.4 pg (26.0-34.0); MEAN CORPUSCULAR VOLUME 93.4 fL (80-100); MEAN PLATELET VOLUME 9.1 fL (9.2-13.0); MONOCYTES 11.6 %; MONOCYTES ABSOLUTE 0.77 10/3/uL (0.21-1.20); NEUTROPHILS 74.3 %; NEUTROPHILS ABSOLUTE 4.96 10/3/uL (2.02-8.40); PLATELET COUNT 362 10/3/uL (150-400); RBC DISTRIBUTION WIDTH 18.4 % (12.0-16.0); RED CELL COUNT 2.86 10/6/uL (4.0-5.6); WHITE BLOOD CELLS 6.7 10/3/uL (4.5-10.5)
[2016-05-29 05:14] LABS: BUN (BLOOD UREA NITROGEN) 4 MG/DL (6-23); CALCIUM, SERUM 8.3 MG/DL (8.5-10.4); CHLORIDE, SERUM 104 MMOL/L (96-112); CO2 (CARBON DIOXIDE) 31 MMOL/L (24-34); GFR AFRICAN AMERICAN 115 ML/MIN (>=60); GFR NON AFRICAN AMERICAN 99 ML/MIN (>=60); GLUCOSE, SERUM 107 MG/DL (60-99); POTASSIUM, SERUM 3.8 MMOL/L (3.5-5.3); SODIUM, SERUM 141 MMOL/L (135-148)
[2016-05-30 04:30] LABS: BASOPHILS 0.3 %; BASOPHILS ABSOLUTE 0.02 10/3/uL (0.0-0.16); EOSINOPHILS 0.8 %; EOSINOPHILS ABSOLUTE 0.05 10/3/uL (0.0-0.53); HEMATOCRIT 27.6 % (36.0-48.0); IMMATURE GRANULOCYTES 1.1 %; IMMATURE GRANULOCYTES ABSOLUTE 0.07 10/3/uL (0.0-0.11); LYMPHOCYTES 8.1 %; LYMPHOCYTES ABSOLUTE 0.51 10/3/uL (0.67-4.30); MANUAL DIFF NO %; MEAN CORPUS HGB CONC 32.6 g/dL (32.0-36.0); MEAN CORPUSCULAR HEMOGLOB 30.7 pg (26.0-34.0); MEAN CORPUSCULAR VOLUME 94.2 fL (80-100); MEAN PLATELET VOLUME 9.2 fL (9.2-13.0); MONOCYTES 13.1 %; MONOCYTES ABSOLUTE 0.82 10/3/uL (0.21-1.20); NEUTROPHILS 76.6 %; NEUTROPHILS ABSOLUTE 4.81 10/3/uL (2.02-8.40); PLATELET COUNT 415 10/3/uL (150-400); RBC DISTRIBUTION WIDTH 18.5 % (12.0-16.0); RED CELL COUNT 2.93 10/6/uL (4.0-5.6); WHITE BLOOD CELLS 6.3 10/3/uL (4.5-10.5)
[2016-05-30 04:44] LABS: BUN (BLOOD UREA NITROGEN) 5 MG/DL (6-23); CALCIUM, SERUM 8.9 MG/DL (8.5-10.4); CHLORIDE, SERUM 102 MMOL/L (96-112); CO2 (CARBON DIOXIDE) 32 MMOL/L (24-34); CREATININE 0.66 MG/DL (0.55-1.02); GFR AFRICAN AMERICAN 105 ML/MIN (>=60); GFR NON AFRICAN AMERICAN 91 ML/MIN (>=60); GLUCOSE, SERUM 112 MG/DL (60-99); POTASSIUM, SERUM 3.7 MMOL/L (3.5-5.3); SODIUM, SERUM 140 MMOL/L (135-148)
[2016-05-31] MEDS ORDERED: ELIQUIS 5 MG TAB5 MG PO (13:21)
[2016-05-31] MEDS ORDERED: CARDCD240 PO (15:21)
[2016-07-08] MEDS ORDERED: ELIQUIS 5 MG TAB5 MG PO (10:57)
[2016-07-08] MEDS ORDERED: OXYCONTIN30 MG PO (10:57)
[2016-07-08] MEDS ORDERED: PROTONIX PO (10:57)
[2016-07-08] MEDS ORDERED: MSIMMR15 PO (10:57)
[2016-07-08] MEDS ORDERED: CARDCD240 PO (10:58)
[2016-07-08] MEDS ORDERED: L40 PO (10:58)
[2016-07-08] MEDS ORDERED: FLORASTOR250 MG PO (10:58)
[2016-07-08] MEDS ORDERED: KLOR-CON M2020 MEQ PO (10:59)
[2016-07-08] MEDS ORDERED: ZOFRAN8 PO (10:59)
[2016-07-08] MEDS ORDERED: ATV1 PO (10:59)
[2016-07-08] MEDS ORDERED: CORTEF5 PO (10:59)
[2016-07-08] MEDS ORDERED: REM15 PO (10:59)
[2016-07-08] MEDS ORDERED: FISH-EPA1000 MG PO (11:00)
[2016-07-08] MEDS ORDERED: MYCOSOINT TOP (11:00)
[2016-07-08] MEDS ORDERED: CENTRUM PO (11:00)
[2016-07-08] MEDS ORDERED: TEARS PURE OPH (11:00)
[2016-07-08] MEDS ORDERED: HAIR/SKIN/NAILS VIT PO (11:01)
[2016-07-08] MEDS ORDERED: CO Q-10100 MG PO (11:01)
[2016-07-08] MEDS ORDERED: CHEMO IV (11:02)
[2016-08-03] MEDS ORDERED: ASABAYER PO (13:03)
[2016-08-06] MEDS ORDERED: LEVAQUIN750 MG PO (15:06)
[2016-09-24] MEDS ORDERED: CARTIA XT240 MG/24 PO (16:08)
[2016-09-24] MEDS ORDERED: CONSTULOSE PO (16:09)
[2016-09-24] MEDS ORDERED: SPIRO50 PO (16:10)
[2016-09-24] MEDS ORDERED: ELIQUIS 5 MG TAB5 MG PO (16:12)
[2016-09-24] MEDS ORDERED: REFRESH OPH SO0.3 ML OPH (16:14)
[2016-09-26] MEDS ORDERED: OMNICEF300 PO (09:55)
[2016-09-26] MEDS ORDERED: MIRALAX POWDER1 PKT PO (09:56)
[2016-10-26] MEDS ORDERED: LAN125 PO (09:08)
[2016-10-26] MEDS ORDERED: REM15 PO (09:15)
[2016-10-30] MEDS ORDERED: ASAB PO (10:52)
[2016-10-30] MEDS ORDERED: BISR PR (10:55)
[2016-10-30] MEDS ORDERED: LEVAQUIN750 MG PO (11:00)
== END 2016-05-31 17:05 | disposition home health service (06) | DRG 871 ==
LOC: ER 10:26 → ER/OF 13:56 → 4EA 15:43 → CVICU 05-20 02:36 → 4EA 05-21 14:25 → 7NO 05-24 20:23
PROVIDERS: Emergency Medicine; Internal Medicine; Internal Medicine Pulmonary Disease; Nurse Practitioner Family
DX: A41.9 Sepsis, unspecified organism (principal); J18.9 Pneumonia, unspecified organism; J96.01 Acute respiratory failure with hypoxia; R65.21 Severe sepsis with septic shock; N17.9 Acute kidney failure, unspecified; C78.00 Secondary malignant neoplasm of unspecified lung; E87.1 Hypo-osmolality and hyponatremia; E27.40 Unspecified adrenocortical insufficiency; I48.91 Unspecified atrial fibrillation; D70.9 Neutropenia, unspecified; E87.6 Hypokalemia; Z66 Do not resuscitate; G89.29 Other chronic pain; K21.9 Gastro-esophageal reflux disease without esophagitis; K59.03 Drug induced constipation; T40.2X5A Adverse effect of other opioids, initial encounter; D64.9 Anemia, unspecified; R50.81 Fever presenting with conditions classified elsewhere; Z90.2 Acquired absence of lung [part of]; Z79.82 Long term (current) use of aspirin; Z87.01 Personal history of pneumonia (recurrent)
CPT/HCPCS: 71010; 71260; 74000; 74177; 80048; 80053; 80069; 80076; 81001; 82248; 82330; 82803; 82947; 82962; 83605; 83735; 83880; 84100; 84132; 84145; 84295; 84439; 84443; 84484; 85007; 85014; 85025; 85027; 85610; 87040; 87449; 93005; 94640; 96374; 96375; 96376; 97110-GP; 97161-GP; 99285; A9270-GY; J0692; J1160; J1170; J1720; J2405; J2550; J2710; J3370; P9045; Q9967

== ENCOUNTER 2016-06-25 08:58 | Inpatient (IN) | payer OTHER, MEDICARE ==
--- NOTE | ~2016-06-25 | HP ---
History And Physical [place] [address] [facility] [place]. [address] NAME: AMA ORTIZ : 47 STATUS : REG ER PAT#: [id number] AGE: 70 ADM/REG DATE : 06/25/16 MR#: [id number] REPORT SERV DATE: 06/25/16 DICTATED BY: BRIDGETT GARCIA DATE: 06/25/16 REPORT STATUS : Draft TRANSCRIBED BY: MODL DATE: 06/25/16 DATE OF ADMISSION: 06/25/2016 IDENTIFYING DATA: A 70-year-old white female, whose PCP is the [facility], medical oncologist, Dr. Lasha Kapoor, LATOYA Hunt. CHIEF COMPLAINT: Nausea, vomiting, weakness. HISTORY OF PRESENT ILLNESS: This history of present illness is obtained by talking directly with the patient and her at the bedside as well as speaking with the ER physician, Dr. Jacobo and the ER nurse and I reviewed [employer] and [employer]. The patient has been known to have breast cancer diagnosed in 2002. She had metastases to the lung at least in 2011 and she has a history of adrenal insufficiency, thought to be due to metastases. The patient had been recently on "a new chemotherapy". She states that as part of that, she has had a lot more leg swelling. She was hospitalized here 04/14/2016 through 04/17/2016 with community-acquired pneumonia and confusion, then was here on 05/19/2016 through 05/31/2016 with community-acquired pneumonia with shock and confusion and paroxysmal atrial fibrillation with rapid ventricular response and is part of her medications at discharge is placed on Eliquis. She has according to her, and chronic epigastric burning pain, worse after meals, this has been going on literally for years. She has had two to three days of nausea and vomiting. No red or black color in that emesis. She noted today bright red blood per rectum. No clots. No melena. Because of that and generalized weakness, she came to the emergency room. In the ER, she was found to be hypoxic, hypotensive, right-side pulmonary infiltrate, and we were asked to admit her to the hospital. Her ER O2 sats were ranging in the low 80s and requiring a lot of supplemental oxygen. She states, she does not take or wear oxygen at home. She states, she has no new medications at home in the last couple weeks. On review of systems, she has had weight fluctuations, at one point she was down to 120 pounds, now she is reportedly on something to stimulate appetite, and is up to 140 pounds and stable. She states, she has had a little more cough, some shortness of breath, sore throat, some vague, chronic right low chest pain, it has been there according to her for years. She has chronic urinary hesitancy, slight dysuria. She has some peripheral edema. She states that edema has gotten worse since the recent chemo. She denies fever, sputum production, diarrhea. PAST MEDICAL HISTORY: No known drug allergies. She denies any history of diabetes, hypertension, asthma, COPD, myocardial infarction, stroke, peptic ulcer, liver disease, chronic kidney disease, thyroid disease, sleep apnea. She also has a history in 2008 of a high-grade non-Hodgkin's lymphoma, treated with chemo History And Physical [address] [address] NAME: AMA ORTIZ : 47 STATUS : REG ER PAT#: [id number] AGE: 70 ADM/REG DATE : 06/25/16 MR#: [id number] REPORT SERV DATE: 06/25/16 DICTATED BY: BRIDGETT GARCIA DATE: 06/25/16 REPORT STATUS : Draft TRANSCRIBED BY: FREIDA DATE: 06/25/16 and radiation. She has a history of chronic abdominal pain with irritable bowel. She has chronic back pain, abdominal pain, and chest wall pain, for which she is on narcotics. She and states she had a seizure once when her sodium was very low. HOME MEDICATIONS: Eliquis 5 mg b.i.d., coenzyme Q 100 mg daily, Cardizem CD 240 mg daily, Benadryl 25 mg at bedtime p.r.n. insomnia, hydrocortisone 10 mg t.i.d., Advil 2 q.4 hours p.r.n. pain, Remeron 30 mg at bedtime, MS-IR 15 mg five times per day p.r.n. pain, Centrum once a day, Mycostatin ointment twice a day topical, fish oil 1000 mg daily, Zofran 8 mg q.8 hours p.r.n. nausea, OxyContin 30 mg t.i.d., KCl 20 mEq daily, Florastor 250 mg daily, over- the-counter hair and skin vitamin and some chemo from Dr. Lasha Kapoor. PAST SURGICAL HISTORY: She had breast cancer resection with mastectomy on the left side with a subsequent reconstruction and flap. She has had a back disc surgery, cholecystectomy, laparoscopic evaluation for abdominal pain. She had a port placed. She had a hysterectomy, benign breast nodules removed, lung biopsy. SOCIAL HISTORY: She has no tobacco or alcohol intake history. She was a previous real estate mortgage processing manager. She is . Lives at home with her . She walks without any assistive devices. Denies any recent falls. Denies home oxygen use. FAMILY HISTORY: Mother in her 90s with dementia. Dad early in his 40s with alcohol problems. Brother had heart disease and in his 50s. DIAGNOSTIC DATA: Chest x-ray as a single portable film reveals an extensive right mid and right lower lung infiltrate, less so in the left perihilar area and right upper lobe consistent with a significant pneumonia and this looks quite different than her previous portable chest x-ray done on 05/29/2016, that is my interpretation. EKG done today at 0741 hours reveals sinus tachycardia and some nonspecific T-wave abnormalities. Sodium 132, potassium 2.8, chloride 90, CO2 is 37, BUN 17, creatinine 1.66, glucose 105, calcium 8.5, magnesium 1.6. Troponin 0.03. Her B-natriuretic peptide is 69.2. Lactic acid is elevated at 3.3, that was drawn at 0820 hours today. Her white count is 3.7, hemoglobin 11.1, and by comparison it was 9.0 on 05/30/2016, indices normocytic other than RDW of 16.8, platelets 331,000. Protime is 18, INR 1.5, PTT is 39.0. PHYSICAL EXAMINATION: VITAL SIGNS: Temp 98, pulse 100, respirations 28, blood pressure initially 86/45, currently now 122/70, O2 saturation currently varying from 87% to 91% on 6 L simple nasal cannula. GENERAL: A well-developed, older female, who appears chronically ill, quite pale, and short of breath moderately. She is mildly to moderately drowsy after pain medicines given in the ER. HEENT: Head is atraumatic. Pupils are equal, round, and reactive to light. Extraocular motions are intact. No scleral icterus noted. Ear canals unremarkable. Normal hearing bilaterally. No inflammatory changes noted in the external ears. Nose, noninflamed externally. Septum midline. Nares patent. Mouth is dry. Good gag. No redness of the throat, gums, or lips. NECK: Supple. No lymph node or thyroid enlargement. The carotids have good pulses. No bruits. History And Physical [address] [place]. [address] NAME: AMA ROTIZ : 47 STATUS : REG ER PAT#: [id number] AGE: 70 ADM/REG DATE : 06/25/16 MR#: [id number] REPORT SERV DATE: 06/25/16 DICTATED BY: BRIDGETT GARCIA DATE: 06/25/16 REPORT STATUS : Draft TRANSCRIBED BY: FREIDA DATE: 06/25/16 LUNGS: Extensive crackles in the right lung from the base up two-thirds of the way on the right and in the left base as well. Fair air flow in the apical lung whatley. HEART: Tachycardic and regular without gallop, click, murmur, rub. ABDOMEN: Bowel sounds positive, soft, nondistended, mildly tender in the right upper quadrant, but she states this is quite chronic. No mass. No organomegaly. No bruits. EXTREMITIES: With 2+ pedal and calf edema bilaterally. No actively inflamed skin or joints. No clubbing or cyanosis. NEUROLOGIC: She is a bit drowsy, reportedly that developed after they gave her pain medicines here in the ER. She is easy to awaken with verbal and tactile stimulation. She is oriented to person, place, time, and circumstance. motor examination is 2/5 in all four extremities. No Babinski. No clonus noted and cranial nerves 2 through 12 are grossly normal. ASSESSMENT: 1. New right lower lobe and right middle lobe infiltration, possibly some also in the right upper lobe and left side in the lingula consistent with healthcare-associated pneumonia. 2. Acute hypoxic respiratory failure. Blood gas been done now on room air. Reportedly, pH 7.50, pCO2 of 43, PO2 of 38, bicarbonate 33, saturation 72.8. 3. Hypotension, consistent with shock related to her pneumonia and possibly also volume depletion. 4. Acute kidney injury related to her infection and low blood pressure and the Advil and possibly volume depletion. 5. Suspected volume depletion. 6. Bright red blood per rectum, on Eliquis and no rectal pain or any significant change in her chronic abdominal pain, some hoping this is only hemorrhoids or small diverticular bleed. 7. Hypokalemia, that is severe. 8. Leukopenia, probably related to chemotherapy. 9. Stage IV breast cancer, on chemo. 10.History of paroxysmal atrial fibrillation, last admission in 05/2016, on Eliquis. 11.Hemoconcentration currently. 12.See past medical history. PLAN: 1. Admit to the IMCU. 2. Lactated Ringer's started now. 3. Stress doses of steroids with hydrocortisone med ordered. I have talked to the ER nurse directly about it. 4. High-flow nasal cannula has been ordered. If that does not work, we will go to [facility]. She has made it clear, she does not want to be intubated and she does not want defibrillation or CPR compressions. She is okay with BiPAP. She is okay with medications for hemodynamic compromise or arrhythmia. is updated at bedside at this time. He understands that the trend over the last few months is very worrisome and unless the patient can have a significant improvement in her immune system, she is likely to have this continue over and over. 5. We are holding her Eliquis. We will use Kcentra, if she develop massive or significant History And Physical [address] [address] NAME: AMA ORTIZ : 47 STATUS : REG ER PAT#: [id number] AGE: 70 ADM/REG DATE : 06/25/16 MR#: [id number] REPORT SERV DATE: 06/25/16 DICTATED BY: BRIDGETT GARCIA DATE: 06/25/16 REPORT STATUS : Draft TRANSCRIBED BY: MODL DATE: 06/25/16 bleeding in the short interval after Eliquis stop. 6. Follow up hemoglobin. 7. Consult her oncology and her GI, although I am not sure she is a candidate for any endoscopic studies at the moment. 8. We will put her on Protonix IV. We will stop her Advil. RSG/MODL Bridgett Garcia M.D. / [id number] CC: Saloni Madera M.D.
--- NOTE | ~2016-06-25 | DS ---
Discharge Summary [facility] [address] [place]. [address] NAME: AMA ORITZ : 47 STATUS : DIS IN PAT#: [id number] AGE: 70 ADM/REG DATE : 06/25/16 MR#: [id number] REPORT SERV DATE: 07/03/16 DICTATED BY: PATRICK HENNESSY DATE: 07/03/16 REPORT STATUS : Draft TRANSCRIBED BY: MODL DATE: 07/03/16 ADMISSION DATE: 06/25/2016 DISCHARGE DATE: 07/03/2016 DISCHARGE DIAGNOSES: 1. Right lower lobe pneumonia, most likely hospital acquired. 2. Acute hypoxic respiratory failure, now resolved. 3. Paroxysmal atrial fibrillation, currently stable. 4. Acute kidney injury, now resolved. 5. Hypovolemic shock, now resolved. 6. Hypokalemia, now resolved. 7. Lower gastrointestinal bleed at this time. All H and H are stable and no further intervention. 8. High-grade small bowel obstruction, resolved with conservative therapy and without surgical intervention. 9. Stage 4 lung cancer. 10.Adrenal insufficiency due to metastatic disease. 11.Chronic pain syndrome. 12.Hypothyroidism. CONSULTANTS DURING THIS HOSPITALIZATION: Dr. Vick Hunt of Gastroenterology, Dr. Adilson Rangel of General Surgery, and Dr. Lasha Kapoor of Hematology/Oncology. BRIEF HISTORY OF PRESENT ILLNESS: The patient is a 70-year-old female with an unfortunate diagnosis of stage 4 breast cancer, has recurrently presented with community-acquired pneumonia and again presented with very similar picture at this time, thought to have hospital-acquired pneumonia, so she was admitted. For detailed history and physical exam, please see note dictated by Dr. Rl Garcia on 06/25/2016. HOSPITAL COURSE: After being admitted to the hospital, this patient was appropriately resuscitated with IV fluids and her H and H were monitored. Eliquis was discontinued because of the bright red blood per rectum. She also was noted to have significant abdominal distention and abdominal pain. On CT scan, she was noted to have a high-grade small bowel obstruction. Dr. Hunt saw the patient in consultation and recommended an NG tube. NG tube was placed and the patient was continued to be monitored. Dr. Rangel saw the patient in consultation and agreed with the conservative approach. Over the last seven days, this patient's course of hospitalization has been somewhat slow to progress, but in the last three days, she has been able to have a bowel movement. We have discontinued her NG tube and she is tolerating a diet. Her hospital-acquired pneumonia has been treated with eight days of IV vancomycin and cefepime total, so no further therapy is warranted. She feels well. She has been weaned off her oxygen and her hypoxia has resolved. She continues to have her chronic pain issues for which she will continue her home medications. She had several episodes of atrial fibrillation during this time, which were managed with Lopressor. She is well managed. We will reinstitute her Eliquis at discharge. Currently, she remained stable and is being discharged in stable condition. I have explained to the patient that because of her underlying cancer, there is still a risk for issues with recurrent pneumonia Discharge Summary [address] [address] NAME: AMA ORTIZ : 47 STATUS : DIS IN PAT#: [id number] AGE: 70 ADM/REG DATE : 06/25/16 MR#: [id number] REPORT SERV DATE: 07/03/16 DICTATED BY: PATRICK HENNESSY DATE: 07/03/16 REPORT STATUS : Draft TRANSCRIBED BY: FREIDA DATE: 07/03/16 as she had had postobstructive pneumonia in the past as well. She understands she is somewhat anxious and skeptical because of her underlying medical problems and her issues with pain. DISCHARGE DISPOSITION: Home. DISCHARGE ACTIVITY: As tolerated. We will order home health care for physical therapy. DISCHARGE DIET: GI soft diet. DISCHARGE MEDICATIONS: Coenzyme Q10 100 mg daily, omega-3 fish oil 1000 mg at supper, Cardizem CD 240 mg daily, Remeron 30 mg once at bedtime, nystatin ointment twice daily, Florastor 250 mg once at supper, hair and nail skin vitamins, cortisone 10 mg three times daily, morphine IR 15 mg five times daily, multivitamins one tablet daily, Zofran 8 mg every eight hours p.r.n., OxyContin 30 mg CR three times daily, chemotherapy on Wednesdays as scheduled by Dr. Lasha Kapoor, Eliquis 5 mg twice daily, potassium 20 mEq once daily. DISCHARGE FOLLOWUP: With Dr. Lasha Kapoor as scheduled previously. TIME SPENT: More than 35 minutes spent planning this patient's discharge, reconciling medications, discussing hospital care, and followup with the patient and documenting this discharge. DICTATED BY: Saloni Muñoz/FREIDA Patrick Hennessy M.D. / [id number] CC: Patrick Hennessy M.D. UNKNOWN Saloni Wade Jr., M.D. Davey B. Daniel, M.D.
--- NOTE | ~2016-06-25 | CN ---
Consultation Report [facility] [address] [place]. [address] NAME: AMA ORTIZ : 47 STATUS : ADM IN PAT#: [id number] AGE: 70 ADM/REG DATE : 06/25/16 MR#: [id number] REPORT SERV DATE: 06/26/16 DICTATED BY: VICK HUNT DATE: 06/26/16 REPORT STATUS : Draft TRANSCRIBED BY: MODL DATE: 06/26/16 DATE OF CONSULTATION: HISTORY OF PRESENT ILLNESS: This is a 70-year-old woman whom I am asked to see for nausea, vomiting, and hematochezia. She is known from prior evaluation and has a GI history most significant for GERD and IBS with chronic functional abdominal pain. She has had endoscopic evaluation in the past few years, but has not been seen regularly. She has apparently been diagnosed with stage 4 breast cancer and is currently undergoing chemotherapy. She has had admissions for acute pneumonia during the last couple of cycles and was admitted last night with a right lower lobe pneumonia and hypoxia. During the course of her evaluation, she reported some bright red rectal bleeding. Her hemoglobin is unchanged from baseline. She is on Eliquis and this was held last night. She says she has had no further bleeding and this does not appear to be an acute issue. She has also reported nausea and dark emesis, but no hematemesis. She said she had nausea with prior episodes of chemotherapy, but never vomited like this. The vomiting has been going on since her chemo that was given last week. Dr. Lasha Kapoor, her oncologist, has been consulted to see her. She has had some mild abdominal distention. She had a chest x-ray on admission, but no abdominal x-ray or CT scan. PAST MEDICAL HISTORY: History of non-Hodgkin lymphoma in 2009, stage 4 breast cancer, GERD, IBS with chronic functional abdominal pain, and chronic back pain. PAST SURGICAL HISTORY: Status post mastectomy with reconstruction status post surgery for degenerative disk disease, status post cholecystectomy, status post laparoscopic evaluation for chronic abdominal pain, status post placement of a port, status post hysterectomy, lung biopsy. MEDICATIONS: (On admission), Eliquis 5 mg twice a day, Cardizem CD, Benadryl, hydrocortisone, Advil, Remeron, sustained-release morphine, multivitamin, Mycostatin, Zofran, OxyContin, Florastor. ALLERGIES: NO KNOWN DRUG ALLERGIES. FAMILY HISTORY: Mother with dementia in her 90s. Her father was an alcoholic. SOCIAL HISTORY: She denies tobacco or alcohol. She is and lives at home with her . REVIEW OF SYSTEMS: Otherwise unremarkable for constitutional, endocrine, neurologic, psychiatric, ocular, ENT, pulmonary, cardiovascular, GI, , or rheumatologic symptoms except for as noted. PHYSICAL EXAMINATION: GENERAL: She is with some distress, lying in bed, but not really short of breath. Consultation Report [place] [id number] [facility] [place]. [address] NAME: AMA ORTIZ : 47 STATUS : ADM IN [facility]#: [id number] AGE: 70 ADM/REG DATE : 06/25/16 MR#: [id number] REPORT SERV DATE: 06/26/16 DICTATED BY: VICK HUNT DATE: 06/26/16 REPORT STATUS : Draft TRANSCRIBED BY: FREIDA DATE: 06/26/16 VITAL SIGNS: Afebrile and hemodynamically stable. SKIN: Warm and dry. LUNGS: Clear but with decreased breath sounds at the right base. ABDOMEN: Soft and nontender. Both mild gaseous distention and tympany. Bowel sounds are hypoactive. EXTREMITIES: No edema. LABORATORY DATA: Hemoglobin 10.7, compared to her baseline of 9 to 10; white count 12,000; platelet count 331. Alkaline phosphatase 132. The liver enzymes are otherwise normal. Albumin 2.2, procalcitonin elevated at 28.9. Two troponins are negative. IMPRESSION: 1. Hematochezia-this was scanned and most consistent with outlet bleeding on Eliquis. I certainly see no evidence of ongoing gastrointestinal bleeding. 2. Nausea and vomiting-this is likely related to the chemotherapy and chronic opioid medications with mild distention, need to rule out small bowel obstruction. RECOMMENDATIONS: 1. Agree with holding Eliquis a couple of days. 2. I see no need for endoscopic evaluation at present and she really would not be a candidate. 3. We will get a CT scan of the abdomen pelvis with oral contrast to rule out small-bowel obstruction. The case was discussed with Dr. Rl Garcia. NEETA/FREIDA Vick Hunt M.D. / [id number] CC: Saloni Hopkins M.D. Davey B. Daniel, M.D.
[2016-06-25 08:29] LABS: BASOPHILS 0 %; EOSINOPHILS 0 %; LYMPHOCYTES 11.9 %; LYMPHOCYTES ABSOLUTE 0.44 10/3/uL (0.67-4.30); MEAN CORPUS HGB CONC 32.7 g/dL (32.0-36.0); MEAN CORPUSCULAR HEMOGLOB 30.6 pg (26.0-34.0); MEAN CORPUSCULAR VOLUME 93.4 fL (80-100); MEAN PLATELET VOLUME 8.4 fL (9.2-13.0); MONOCYTES ABSOLUTE 0.11 10/3/uL (0.21-1.20); NEUTROPHILS 85.1 %; NEUTROPHILS ABSOLUTE 3.14 10/3/uL (2.02-8.40); PLATELET COUNT 336 10/3/uL (150-400); RBC DISTRIBUTION WIDTH 16.8 % (12.0-16.0)
[2016-06-25 08:30] LABS: ER CBC TAT 0 Hrs 05 Mins; HEMATOCRIT 33.9 % (36.0-48.0); HEMOGLOBIN 11.1 g/dL (12.0-16.0); RED CELL COUNT 3.63 10/6/uL (4.0-5.6); WHITE BLOOD CELLS 3.7 10/3/uL (4.5-10.5)
[2016-06-25 08:31] LABS: MANUAL DIFF NO %
[2016-06-25 08:36] LABS: INTERNATIONAL NORMAL RATI 1.5 UNITS (-)
[2016-06-25 08:44] LABS: CALCIUM, SERUM 8.5 MG/DL (8.5-10.4); CHEST PAIN PROFILE TAT 0 Hrs 19 Mins; GFR AFRICAN AMERICAN 36 ML/MIN (>=60); GFR NON AFRICAN AMERICAN 31 ML/MIN (>=60); GLUCOSE, SERUM 103 MG/DL (60-99); TROPONIN I 0.03 NG/ML (<0.05)
[2016-06-25 08:45] LABS: BUN (BLOOD UREA NITROGEN) 17 MG/DL (6-23); CHLORIDE, SERUM 90 MMOL/L (96-112); CO2 (CARBON DIOXIDE) 37 MMOL/L (24-34); CREATININE 1.66 MG/DL (0.55-1.02); POTASSIUM, SERUM 2.8 MMOL/L (3.5-5.3); SODIUM, SERUM 132 MMOL/L (135-148)
[~2016-06-25 08:58] MED LIST changes: +CARDCD240 PO; +ELIQUIS 5 MG TAB5 MG PO
[2016-06-25 09:26] LABS: LACTATE 3.3 MMOL/L (0.3-2.4)
[2016-06-25 09:39] LABS: ALLENS TEST Pos; BE (BASE EXCESS) 8.9 MEQ/L (0 +/- 2.5); CARBOXYHEMOGLOBIN 1.4 % (0-3); HEMOBLOGIN CONTENT 10.8 G/DL (12-16); INSTRUMENT SERIAL # 8087; METHEMOGLOBIN 0.4 % (0-3); O2 CONTENT 10.9 VOL% (18-24); OPERATOR ID 14335; PCO2 (CO2 TENSION) 43 MMHG (35-45); PO2 (O2 TENSION) 38 MMHG (79-93); SAMPLE Arterial
[2016-06-25] MEDS ORDERED: MYCOSOINT TOP (11:02)
[2016-06-25] MEDS ORDERED: ADVIL PO (11:04)
[2016-06-25] MEDS ORDERED: KLOR-CON M2020 MEQ PO (11:05)
[2016-06-25] MEDS ORDERED: FLORASTOR250 MG PO (11:06)
[2016-06-25] MEDS ORDERED: BEN25 PO (11:07)
[2016-06-25 17:35] LABS: HEMOGLOBIN 9.7 g/dL (12.0-16.0)
[2016-06-25 17:36] LABS: HEMATOCRIT 28.8 % (36.0-48.0)
[2016-06-25 21:06] LABS: HEMATOCRIT 29.4 % (36.0-48.0); HEMOGLOBIN 9.7 g/dL (12.0-16.0)
[2016-06-25 21:24] LABS: TROPONIN I 0.03 NG/ML (<0.05); ULTRASENSITIVE TSH 3.16 MCIU/ML (0.358-3.740)
[2016-06-25 21:31] LABS: PROCALCITONIN 30.73 ng/mL (<0.5)
[2016-06-26 01:01] LABS: HEMATOCRIT 31.9 % (36.0-48.0); HEMOGLOBIN 10.7 g/dL (12.0-16.0); MEAN CORPUS HGB CONC 33.5 g/dL (32.0-36.0); MEAN CORPUSCULAR HEMOGLOB 31.3 pg (26.0-34.0); MEAN CORPUSCULAR VOLUME 93.3 fL (80-100); MEAN PLATELET VOLUME 8.9 fL (9.2-13.0); PLATELET COUNT 331 10/3/uL (150-400); RBC DISTRIBUTION WIDTH 17.2 % (12.0-16.0); RED CELL COUNT 3.42 10/6/uL (4.0-5.6)
[2016-06-26 01:02] LABS: MANUAL DIFF YES %
[2016-06-26 01:17] LABS: ALBUMIN 2.2 G/DL (3.5-5.0); CALCIUM, SERUM 8.7 MG/DL (8.5-10.4); CHLORIDE, SERUM 95 MMOL/L (96-112); CO2 (CARBON DIOXIDE) 35 MMOL/L (24-34); GFR AFRICAN AMERICAN 41 ML/MIN (>=60); GFR NON AFRICAN AMERICAN 35 ML/MIN (>=60); GLUCOSE, SERUM 95 MG/DL (60-99); SGOT(AST) 31 U/L (5-40); SGPT(ALT) 23 U/L (5-65); SODIUM, SERUM 136 MMOL/L (135-148); TOTAL BILIRUBIN 0.6 MG/DL (0-1.2); TOTAL PROTEIN 5.3 G/DL (6.0-8.5)
[2016-06-26 01:18] LABS: A/G RATIO 0.7 (0.7-1.9); ALKALINE PHOSPHATASE 132 U/L (45-117); BUN (BLOOD UREA NITROGEN) 21 MG/DL (6-23); GLOBULIN 3.1 G/DL (2.5-4.1); POTASSIUM, SERUM 3.9 MMOL/L (3.5-5.3)
[2016-06-26 01:24] LABS: ANISOCYTOSIS 1+ (5-10/OIF) (0-5/OIF); BAND NEUTROPHILS 43 %; IMMATURE GRANS ABSOLUTE (CALC) 0.24 10/3/uL (0.0-0.11); LYMPHOCYTES 2 %; LYMPHOCYTES ABSOLUTE (CALC) 0.24 10/3/uL (0.67-4.30); METAMYELOCYTES 2 %; MONOCYTES 1 %; MONOCYTES ABSOLUTE (CALC) 0.12 10/3/uL (0.21-1.20); PLATELET ESTIMATE ADQ (ADEQUATE); SEGMENTED NEUTROPHIL (0) 52 %; TOTAL NUCLEATED CELLS 100
[2016-06-26 02:02] LABS: PROCALCITONIN 28.92 ng/mL (<0.5)
[2016-06-26 09:44] LABS: HEMATOCRIT 31.1 % (36.0-48.0); HEMOGLOBIN 10.2 g/dL (12.0-16.0)
[2016-06-27 01:52] LABS: HEMATOCRIT 29.7 % (36.0-48.0); HEMOGLOBIN 9.5 g/dL (12.0-16.0)
[2016-06-27 03:19] LABS: BASOPHILS 0.1 %; BASOPHILS ABSOLUTE 0.01 10/3/uL (0.0-0.16); EOSINOPHILS 0.1 %; EOSINOPHILS ABSOLUTE 0.01 10/3/uL (0.0-0.53); HEMATOCRIT 30.3 % (36.0-48.0); HEMOGLOBIN 10.1 g/dL (12.0-16.0); IMMATURE GRANULOCYTES 0.3 %; IMMATURE GRANULOCYTES ABSOLUTE 0.05 10/3/uL (0.0-0.11); LYMPHOCYTES 3.6 %; LYMPHOCYTES ABSOLUTE 0.53 10/3/uL (0.67-4.30); MEAN CORPUS HGB CONC 33.3 g/dL (32.0-36.0); MEAN CORPUSCULAR VOLUME 92.9 fL (80-100); MEAN PLATELET VOLUME 9.1 fL (9.2-13.0); MONOCYTES ABSOLUTE 0.88 10/3/uL (0.21-1.20); NEUTROPHILS 89.9 %; NEUTROPHILS ABSOLUTE 13.14 10/3/uL (2.02-8.40); PLATELET COUNT 362 10/3/uL (150-400); RBC DISTRIBUTION WIDTH 17.2 % (12.0-16.0); RED CELL COUNT 3.26 10/6/uL (4.0-5.6); WHITE BLOOD CELLS 14.6 10/3/uL (4.5-10.5)
[2016-06-27 03:21] LABS: MANUAL DIFF NO %
[2016-06-27 03:36] LABS: A/G RATIO 0.5 (0.7-1.9); ALBUMIN 1.9 G/DL (3.5-5.0); ALKALINE PHOSPHATASE 124 U/L (45-117); BUN (BLOOD UREA NITROGEN) 20 MG/DL (6-23); CALCIUM, SERUM 8.3 MG/DL (8.5-10.4); CHLORIDE, SERUM 99 MMOL/L (96-112); CO2 (CARBON DIOXIDE) 32 MMOL/L (24-34); CPK 13 U/L (0-200); GLOBULIN 3.6 G/DL (2.5-4.1); POTASSIUM, SERUM 3.7 MMOL/L (3.5-5.3); SGOT(AST) 27 U/L (5-40); SGPT(ALT) 18 U/L (5-65); SODIUM, SERUM 138 MMOL/L (135-148); TOTAL BILIRUBIN 0.5 MG/DL (0-1.2); TOTAL PROTEIN 5.5 G/DL (6.0-8.5); TROPONIN I 0.04 NG/ML (<0.05)
[2016-06-27 03:37] LABS: CREATININE 0.89 MG/DL (0.55-1.02); GFR AFRICAN AMERICAN 77 ML/MIN (>=60); GFR NON AFRICAN AMERICAN 67 ML/MIN (>=60); GLUCOSE, SERUM 126 MG/DL (60-99)
[2016-06-27 04:36] LABS: ALLENS TEST Pos; BE (BASE EXCESS) 5.4 MEQ/L (0 +/- 2.5); CARBOXYHEMOGLOBIN 0.4 % (0-3); DEVICE NC; HCO3 (ACTUAL BICARBONATE) 28.6 MEQ/L (23-27); HEMOBLOGIN CONTENT 11.9 G/DL (12-16); INSTRUMENT SERIAL # 11843; METHEMOGLOBIN 0.4 % (0-3); O2 CONTENT 15.2 VOL% (18-24); OPERATOR ID 32193; PCO2 (CO2 TENSION) 37 MMHG (35-45); PO2 (O2 TENSION) 64 MMHG (79-93); SAMPLE Arterial; pH 7.51 (7.37-7.43)
[2016-06-27 12:14] LABS: TROPONIN I 0.04 NG/ML (<0.05)
[2016-06-27 20:51] LABS: TROPONIN I 0.02 NG/ML (<0.05)
[2016-06-28 05:15] LABS: BASOPHILS 0.1 %; BASOPHILS ABSOLUTE 0.01 10/3/uL (0.0-0.16); EOSINOPHILS 0 %; HEMATOCRIT 29.2 % (36.0-48.0); HEMOGLOBIN 9.3 g/dL (12.0-16.0); IMMATURE GRANULOCYTES 0.2 %; IMMATURE GRANULOCYTES ABSOLUTE 0.03 10/3/uL (0.0-0.11); LYMPHOCYTES 4.6 %; LYMPHOCYTES ABSOLUTE 0.61 10/3/uL (0.67-4.30); MEAN CORPUS HGB CONC 31.8 g/dL (32.0-36.0); MEAN CORPUSCULAR HEMOGLOB 30.3 pg (26.0-34.0); MEAN CORPUSCULAR VOLUME 95.1 fL (80-100); MEAN PLATELET VOLUME 9.3 fL (9.2-13.0); MONOCYTES 5.4 %; MONOCYTES ABSOLUTE 0.72 10/3/uL (0.21-1.20); NEUTROPHILS 89.7 %; NEUTROPHILS ABSOLUTE 11.99 10/3/uL (2.02-8.40); PLATELET COUNT 314 10/3/uL (150-400); RBC DISTRIBUTION WIDTH 16.9 % (12.0-16.0); RED CELL COUNT 3.07 10/6/uL (4.0-5.6); WHITE BLOOD CELLS 13.4 10/3/uL (4.5-10.5)
[2016-06-28 05:17] LABS: INTERNATIONAL NORMAL RATI 1.1 UNITS (-); PARTIAL THROMBO TIME 31.2 SEC (22.5-37.2)
[2016-06-28 05:18] LABS: MANUAL DIFF NO %; PROTIME (NOT ORD) 14.1 SEC (12.0-14.5)
[2016-06-28 05:27] LABS: A/G RATIO 0.5 (0.7-1.9); ALBUMIN 1.7 G/DL (3.5-5.0); ALKALINE PHOSPHATASE 106 U/L (45-117); BUN (BLOOD UREA NITROGEN) 18 MG/DL (6-23); CHLORIDE, SERUM 104 MMOL/L (96-112); CO2 (CARBON DIOXIDE) 34 MMOL/L (24-34); CREATININE 0.61 MG/DL (0.55-1.02); GFR AFRICAN AMERICAN 108 ML/MIN (>=60); GFR NON AFRICAN AMERICAN 93 ML/MIN (>=60); GLOBULIN 3.3 G/DL (2.5-4.1); GLUCOSE, SERUM 162 MG/DL (60-99); PHOSPHORUS, SERUM 2.1 MG/DL (2.5-4.5); SGOT(AST) 25 U/L (5-40); SGPT(ALT) 17 U/L (5-65); SODIUM, SERUM 140 MMOL/L (135-148); TOTAL BILIRUBIN 0.3 MG/DL (0-1.2)
[2016-06-29 06:20] LABS: BASOPHILS 0.1 %; BASOPHILS ABSOLUTE 0.01 10/3/uL (0.0-0.16); EOSINOPHILS 0 %; HEMATOCRIT 30.8 % (36.0-48.0); HEMOGLOBIN 9.7 g/dL (12.0-16.0); IMMATURE GRANULOCYTES 0.3 %; IMMATURE GRANULOCYTES ABSOLUTE 0.03 10/3/uL (0.0-0.11); LYMPHOCYTES 6.8 %; LYMPHOCYTES ABSOLUTE 0.73 10/3/uL (0.67-4.30); MEAN CORPUS HGB CONC 31.5 g/dL (32.0-36.0); MEAN CORPUSCULAR VOLUME 95.4 fL (80-100); MEAN PLATELET VOLUME 9.5 fL (9.2-13.0); MONOCYTES 6.9 %; MONOCYTES ABSOLUTE 0.74 10/3/uL (0.21-1.20); NEUTROPHILS 85.9 %; NEUTROPHILS ABSOLUTE 9.28 10/3/uL (2.02-8.40); PLATELET COUNT 331 10/3/uL (150-400); RBC DISTRIBUTION WIDTH 16.3 % (12.0-16.0); RED CELL COUNT 3.23 10/6/uL (4.0-5.6); WHITE BLOOD CELLS 10.8 10/3/uL (4.5-10.5)
[2016-06-29 06:22] LABS: MANUAL DIFF NO %
[2016-06-29 06:39] LABS: A/G RATIO 0.5 (0.7-1.9); ALBUMIN 1.7 G/DL (3.5-5.0); ALKALINE PHOSPHATASE 106 U/L (45-117); CALCIUM, SERUM 8.2 MG/DL (8.5-10.4); CHLORIDE, SERUM 103 MMOL/L (96-112); CO2 (CARBON DIOXIDE) 31 MMOL/L (24-34); CREATININE 0.49 MG/DL (0.55-1.02); GFR AFRICAN AMERICAN 116 ML/MIN (>=60); GFR NON AFRICAN AMERICAN 100 ML/MIN (>=60); GLOBULIN 3.6 G/DL (2.5-4.1); GLUCOSE, SERUM 162 MG/DL (60-99); POTASSIUM, SERUM 4.4 MMOL/L (3.5-5.3); SGOT(AST) 28 U/L (5-40); SGPT(ALT) 18 U/L (5-65); SODIUM, SERUM 137 MMOL/L (135-148); TOTAL BILIRUBIN 0.2 MG/DL (0-1.2); TOTAL PROTEIN 5.3 G/DL (6.0-8.5)
[2016-06-29 06:40] LABS: BUN (BLOOD UREA NITROGEN) 14 MG/DL (6-23)
[2016-06-30 05:13] LABS: ALBUMIN 1.8 G/DL (3.5-5.0); BUN (BLOOD UREA NITROGEN) 10 MG/DL (6-23); CALCIUM, SERUM 7.8 MG/DL (8.5-10.4); CHLORIDE, SERUM 107 MMOL/L (96-112); CO2 (CARBON DIOXIDE) 30 MMOL/L (24-34); CREATININE 0.45 MG/DL (0.55-1.02); GFR AFRICAN AMERICAN 119 ML/MIN (>=60); GFR NON AFRICAN AMERICAN 103 ML/MIN (>=60); GLUCOSE, SERUM 188 MG/DL (60-99); PHOSPHORUS, SERUM 1.6 MG/DL (2.5-4.5); SODIUM, SERUM 140 MMOL/L (135-148)
[2016-06-30 07:50] LABS: HEMATOCRIT 29.4 % (36.0-48.0); HEMOGLOBIN 9.5 g/dL (12.0-16.0); MEAN CORPUS HGB CONC 32.3 g/dL (32.0-36.0); MEAN CORPUSCULAR HEMOGLOB 30.4 pg (26.0-34.0); MEAN CORPUSCULAR VOLUME 93.9 fL (80-100); MEAN PLATELET VOLUME 9.4 fL (9.2-13.0); PLATELET COUNT 296 10/3/uL (150-400); RBC DISTRIBUTION WIDTH 16.1 % (12.0-16.0); RED CELL COUNT 3.13 10/6/uL (4.0-5.6); WHITE BLOOD CELLS 11.1 10/3/uL (4.5-10.5)
[2016-06-30 07:51] LABS: MANUAL DIFF YES %
[2016-06-30 07:53] LABS: LYMPHOCYTES 5 %; LYMPHOCYTES ABSOLUTE (CALC) 0.56 10/3/uL (0.67-4.30); MONOCYTES 9 %; NEUTROPHILS ABSOLUTE (CALC) 9.55 10/3/uL (2.02-8.40); PLATELET ESTIMATE ADQ (ADEQUATE); SEGMENTED NEUTROPHIL (0) 86 %; TOTAL NUCLEATED CELLS 100
[2016-06-30 07:54] LABS: ELLIPTOCYTES 1+ (3-10/OIF) (0-2/OIF)
[2016-06-30 07:56] LABS: SCHISTOCYTES OCC (0-2/OIF); TEARDROP SHAPED RBCS OCC (0-2/OIF)
[2016-06-30 08:47] LABS: ALBUMIN 1.7 G/DL (3.5-5.0); BUN (BLOOD UREA NITROGEN) 11 MG/DL (6-23); CALCIUM, SERUM 7.8 MG/DL (8.5-10.4); CHLORIDE, SERUM 109 MMOL/L (96-112); CO2 (CARBON DIOXIDE) 31 MMOL/L (24-34); CREATININE 0.41 MG/DL (0.55-1.02); GFR AFRICAN AMERICAN 123 ML/MIN (>=60); GFR NON AFRICAN AMERICAN 106 ML/MIN (>=60); GLUCOSE, SERUM 162 MG/DL (60-99); PHOSPHORUS, SERUM 1.6 MG/DL (2.5-4.5); POTASSIUM, SERUM 3.1 MMOL/L (3.5-5.3); PREALBUMIN 12.9 MG/DL (17.0-43.0); SODIUM, SERUM 141 MMOL/L (135-148)
[2016-06-30 15:05] LABS: BUN (BLOOD UREA NITROGEN) 9 MG/DL (6-23); CALCIUM, SERUM 7.8 MG/DL (8.5-10.4); CHLORIDE, SERUM 107 MMOL/L (96-112); CO2 (CARBON DIOXIDE) 32 MMOL/L (24-34); CREATININE 0.39 MG/DL (0.55-1.02); GFR AFRICAN AMERICAN 125 ML/MIN (>=60); GFR NON AFRICAN AMERICAN 108 ML/MIN (>=60); GLUCOSE, SERUM 131 MG/DL (60-99); PHOSPHORUS, SERUM 1.8 MG/DL (2.5-4.5); SODIUM, SERUM 141 MMOL/L (135-148)
[2016-06-30 15:07] LABS: POTASSIUM, SERUM 3.5 MMOL/L (3.5-5.3)
[2016-07-01 06:23] LABS: BASOPHILS 0.1 %; BASOPHILS ABSOLUTE 0.01 10/3/uL (0.0-0.16); EOSINOPHILS 0 %; HEMATOCRIT 28.7 % (36.0-48.0); HEMOGLOBIN 9.6 g/dL (12.0-16.0); IMMATURE GRANULOCYTES 2.5 %; IMMATURE GRANULOCYTES ABSOLUTE 0.24 10/3/uL (0.0-0.11); LYMPHOCYTES 7.6 %; LYMPHOCYTES ABSOLUTE 0.74 10/3/uL (0.67-4.30); MEAN CORPUS HGB CONC 33.4 g/dL (32.0-36.0); MEAN CORPUSCULAR HEMOGLOB 31.2 pg (26.0-34.0); MEAN CORPUSCULAR VOLUME 93.2 fL (80-100); MEAN PLATELET VOLUME 9.5 fL (9.2-13.0); MONOCYTES ABSOLUTE 1.07 10/3/uL (0.21-1.20); NEUTROPHILS 78.8 %; NEUTROPHILS ABSOLUTE 7.64 10/3/uL (2.02-8.40); PLATELET COUNT 359 10/3/uL (150-400); RBC DISTRIBUTION WIDTH 16.1 % (12.0-16.0); RED CELL COUNT 3.08 10/6/uL (4.0-5.6); WHITE BLOOD CELLS 9.7 10/3/uL (4.5-10.5)
[2016-07-01 06:28] LABS: MANUAL DIFF NO %
[2016-07-01 07:01] LABS: A/G RATIO 0.6 (0.7-1.9); ALBUMIN 1.8 G/DL (3.5-5.0); ALKALINE PHOSPHATASE 103 U/L (45-117); CALCIUM, SERUM 7.7 MG/DL (8.5-10.4); CHLORIDE, SERUM 104 MMOL/L (96-112); CO2 (CARBON DIOXIDE) 34 MMOL/L (24-34); CREATININE 0.39 MG/DL (0.55-1.02); GFR AFRICAN AMERICAN 125 ML/MIN (>=60); GFR NON AFRICAN AMERICAN 108 ML/MIN (>=60); GLOBULIN 3.1 G/DL (2.5-4.1); PHOSPHORUS, SERUM 1.9 MG/DL (2.5-4.5); SGOT(AST) 30 U/L (5-40); SGPT(ALT) 28 U/L (5-65); SODIUM, SERUM 141 MMOL/L (135-148); TOTAL PROTEIN 4.9 G/DL (6.0-8.5); TRIGLYCERIDE 116 MG/DL (< 150)
[2016-07-01 07:25] LABS: BUN (BLOOD UREA NITROGEN) 14 MG/DL (6-23); FOLATE 14.2 NG/ML (>5.2); GLUCOSE, SERUM 182 MG/DL (60-99); POTASSIUM, SERUM 2.4 MMOL/L (3.5-5.3); TOTAL BILIRUBIN 0.7 MG/DL (0-1.2)
[2016-07-02 01:37] LABS: HEMOGLOBIN 11.1 g/dL (12.0-16.0); MEAN CORPUS HGB CONC 32.2 g/dL (32.0-36.0); MEAN CORPUSCULAR HEMOGLOB 29.7 pg (26.0-34.0); MEAN CORPUSCULAR VOLUME 92.2 fL (80-100); MEAN PLATELET VOLUME 9.6 fL (9.2-13.0); NUCLEATED RED BLOOD CELLS 0.5 /100WBC (0-0); RBC DISTRIBUTION WIDTH 16.3 % (12.0-16.0)
[2016-07-02 01:38] LABS: HEMATOCRIT 34.5 % (36.0-48.0); MANUAL DIFF YES %; PLATELET COUNT 497 10/3/uL (150-400); RED CELL COUNT 3.74 10/6/uL (4.0-5.6); WHITE BLOOD CELLS 14.9 10/3/uL (4.5-10.5)
[2016-07-02 01:44] LABS: ALBUMIN 2.1 G/DL (3.5-5.0); CALCIUM, SERUM 7.8 MG/DL (8.5-10.4); CHLORIDE, SERUM 104 MMOL/L (96-112); CO2 (CARBON DIOXIDE) 30 MMOL/L (24-34); CREATININE 0.54 MG/DL (0.55-1.02); GFR AFRICAN AMERICAN 112 ML/MIN (>=60); GFR NON AFRICAN AMERICAN 97 ML/MIN (>=60); SODIUM, SERUM 141 MMOL/L (135-148)
[2016-07-02 01:46] LABS: BUN (BLOOD UREA NITROGEN) 22 MG/DL (6-23); GLUCOSE, SERUM 238 MG/DL (60-99); PHOSPHORUS, SERUM 2.6 MG/DL (2.5-4.5); POTASSIUM, SERUM 3.6 MMOL/L (3.5-5.3)
[2016-07-02 01:56] LABS: BAND NEUTROPHILS 4 %; LYMPHOCYTES 18 %; LYMPHOCYTES ABSOLUTE (CALC) 2.68 10/3/uL (0.67-4.30); METAMYELOCYTES 2 %; MONOCYTES 1 %; MONOCYTES ABSOLUTE (CALC) 0.15 10/3/uL (0.21-1.20); NEUTROPHILS ABSOLUTE (CALC) 11.77 10/3/uL (2.02-8.40); PLATELET ESTIMATE SLT INC (ADEQUATE); RBC MORPHOLOGY NORM (NORMAL); SEGMENTED NEUTROPHIL (0) 75 %; TOTAL NUCLEATED CELLS 100
[2016-07-08] MEDS ORDERED: ELIQUIS 5 MG TAB5 MG PO (10:57)
[2016-07-08] MEDS ORDERED: OXYCONTIN30 MG PO (10:57)
[2016-07-08] MEDS ORDERED: MSIMMR15 PO (10:57)
[2016-07-08] MEDS ORDERED: PROTONIX PO (10:57)
[2016-07-08] MEDS ORDERED: FLORASTOR250 MG PO (10:58)
[2016-07-08] MEDS ORDERED: CARDCD240 PO (10:58)
[2016-07-08] MEDS ORDERED: L40 PO (10:58)
[2016-07-08] MEDS ORDERED: KLOR-CON M2020 MEQ PO (10:59)
[2016-07-08] MEDS ORDERED: CORTEF5 PO (10:59)
[2016-07-08] MEDS ORDERED: ZOFRAN8 PO (10:59)
[2016-07-08] MEDS ORDERED: REM15 PO (10:59)
[2016-07-08] MEDS ORDERED: ATV1 PO (10:59)
[2016-07-08] MEDS ORDERED: FISH-EPA1000 MG PO (11:00)
[2016-07-08] MEDS ORDERED: MYCOSOINT TOP (11:00)
[2016-07-08] MEDS ORDERED: CENTRUM PO (11:00)
[2016-07-08] MEDS ORDERED: TEARS PURE OPH (11:00)
[2016-07-08] MEDS ORDERED: HAIR/SKIN/NAILS VIT PO (11:01)
[2016-07-08] MEDS ORDERED: CO Q-10100 MG PO (11:01)
[2016-07-08] MEDS ORDERED: CHEMO IV (11:02)
[2016-08-03] MEDS ORDERED: ASABAYER PO (13:03)
[2016-08-06] MEDS ORDERED: LEVAQUIN750 MG PO (15:06)
[2016-09-24] MEDS ORDERED: CARTIA XT240 MG/24 PO (16:08)
[2016-09-24] MEDS ORDERED: CONSTULOSE PO (16:09)
[2016-09-24] MEDS ORDERED: SPIRO50 PO (16:10)
[2016-09-24] MEDS ORDERED: ELIQUIS 5 MG TAB5 MG PO (16:12)
[2016-09-24] MEDS ORDERED: REFRESH OPH SO0.3 ML OPH (16:14)
[2016-09-26] MEDS ORDERED: OMNICEF300 PO (09:55)
[2016-09-26] MEDS ORDERED: MIRALAX POWDER1 PKT PO (09:56)
[2016-10-26] MEDS ORDERED: LAN125 PO (09:08)
[2016-10-26] MEDS ORDERED: REM15 PO (09:15)
[2016-10-30] MEDS ORDERED: ASAB PO (10:52)
[2016-10-30] MEDS ORDERED: BISR PR (10:55)
[2016-10-30] MEDS ORDERED: LEVAQUIN750 MG PO (11:00)
== END 2016-07-03 14:45 | disposition home or self-care (01) | DRG 871 ==
LOC: ER 08:58 → IMCU 15:27 → 2SO 06-26 09:51
PROVIDERS: Emergency Medicine; Hospitalist; Internal Medicine; Specialist
DX: A41.9 Sepsis, unspecified organism (principal); J96.21 Acute and chronic respiratory failure with hypoxia; R57.1 Hypovolemic shock; N17.9 Acute kidney failure, unspecified; K56.60 Unspecified intestinal obstruction; D70.1 Agranulocytosis secondary to cancer chemotherapy; J18.9 Pneumonia, unspecified organism; C78.00 Secondary malignant neoplasm of unspecified lung; K62.5 Hemorrhage of anus and rectum; E87.2 Acidosis; K92.2 Gastrointestinal hemorrhage, unspecified; E27.40 Unspecified adrenocortical insufficiency; C79.70 Secondary malignant neoplasm of unspecified adrenal gland; R65.20 Severe sepsis without septic shock; E86.9 Volume depletion, unspecified; D72.819 Decreased white blood cell count, unspecified; I48.0 Paroxysmal atrial fibrillation; E87.6 Hypokalemia; Z66 Do not resuscitate; G89.4 Chronic pain syndrome; E03.9 Hypothyroidism, unspecified; I95.9 Hypotension, unspecified; F41.9 Anxiety disorder, unspecified; K21.9 Gastro-esophageal reflux disease without esophagitis; K58.9 Irritable bowel syndrome, unspecified; R39.11 Hesitancy of micturition; Z80.1 Family history of malignant neoplasm of trachea, bronchus and lung; Z85.72 Personal history of non-Hodgkin lymphomas; Z90.10 Acquired absence of unspecified breast and nipple; Z98.890 Other specified postprocedural states; Z92.21 Personal history of antineoplastic chemotherapy; Z92.3 Personal history of irradiation
CPT/HCPCS: 36415; 36600; 71010; 74000; 74176; 74177; 80048; 80053; 80069; 80202; 82150; 82330; 82550; 82607; 82746; 82805; 82962; 83605; 83690; 83735; 83880; 84100; 84134; 84145; 84443; 84478; 84484; 85014; 85018; 85025; 85610; 85730; 86850; 86900; 86901; 86920; 87040; 93005; 96365; 96367; 96375; 99285; A9270-GY; C9113; J0692; J1720; J2405; J2550; J2765; J3370; J3475; Q9967

== ENCOUNTER 2016-07-08 11:54 | Inpatient (IN) | payer OTHER, MEDICARE ==
--- NOTE | ~2016-07-08 | DS ---
Discharge Summary [facility] [address] [place]. [address] NAME: AMA ORTIZ : 49 STATUS : DIS IN PAT#: [id number] AGE: 70 ADM/REG DATE : 07/08/16 MR#: [id number] REPORT SERV DATE: 07/13/16 DICTATED BY: LIBAN COWAN DATE: 07/12/16 REPORT STATUS : Draft TRANSCRIBED BY: MODL DATE: 07/12/16 ADMISSION DATE: 07/08/2016 DISCHARGE DATE: 07/12/2016 DISCHARGE DIAGNOSES: 1. Hypokalemia. 2. Atrial fibrillation. 3. Infection ruled out. 4. Adrenal insufficiency. IMAGIN. Chest x-ray, 07/08/2016, impression: A 1.7 cm pulmonary nodule, right mid lung. 2. Chest x-ray, 07/10/2016, impression: Resolution of right lung consolidation. At least 2 right lung nodules are visual, measuring 1.4 to 2.0 cm in size. Mid left perihilar bandlike atelectasis. LABORATORY DATA: WBCs 6.0, hemoglobin 8.4, hematocrit 26.2, platelet count is 311. Sodium is 144, potassium is 3.7, chloride is 107, CO2 is 31, BUN is 9, creatinine is 0.71, glucose is 92, calcium is 8.2, phosphorus is 2.1, albumin is 2.1. COURSE OF HOSPITAL STAY: Please refer to history and physical dictated by Dr. Rl Garcia on 07/08/2016 for complete admission details. This patient is a 70-year-old female who is under the care of Dr. Lasha Kapoor for non- Hodgkin's lymphoma. Last treated with chemotherapy in 2008, has had radiation. The patient was admitted due to complaints of weakness and possible fevers. The patient was admitted, initially started on antibiotics. Cultures were obtained as well as imaging. Cultures did return negative. The patient was monitored off antibiotics for greater than 48 hours. The patient did remain afebrile, white count has remained within normal limits. Due to the patient's hypokalemia, the patient was placed on oral potassium. At this time, the patient will be discharged with 40 mEq of potassium daily to be rechecked in one week in Dr. Lasha Kapoor's office. The patient will continue with home medications for atrial fibrillation and her adrenal insufficiency. Due to the patient's complaints of weakness, we will have home health follow the patient along with physical therapy. This patient is being discharged home in hemodynamically stable condition, will follow up with Dr. Lasha Kapoor in one week. We will provide a prescription for potassium 40 mEq one daily. The patient is in agreement with the treatment plan. DISCHARGE MEDICATIONS: 1. Eliquis 5 mg one p.o. twice daily. 2. Gillian Cream 2 ounce apply to buttocks daily. 3. CoQ10, 100 mg one p.o. at supper. 4. Cardizem 240 mg p.o. daily. 5. Lasix 40 mg one p.o. daily. 6. Remeron 30 mg one p.o. at bedtime. Discharge Summary [address] [address] NAME: AMA ORTIZ : 47 STATUS : DIS IN PAT#: [id number] AGE: 70 ADM/REG DATE : 07/08/16 MR#: [id number] REPORT SERV DATE: 07/13/16 DICTATED BY: LIBAN COWAN DATE: 07/12/16 REPORT STATUS : Draft TRANSCRIBED BY: FREIDA DATE: 07/12/16 7. Fish oil 1000 mg p.o. at supper. 8. Protonix 40 mg one p.o. at dinner. 9. Potassium 40 mEq p.o. daily. 10.Florastor 250 mg one p.o. at supper. 11.OxyContin 30 mg CR p.o. every eight hours. 12.Cortef 10 mg p.o. three times daily. 13.Morphine 15 mg IR p.o. every four hours for breakthrough pain. 14.Ativan 1 mg one p.o. twice daily p.r.n. for anxiety. 15.Zofran 8 mg one p.o. every eight hours p.r.n. for nausea. 16.Artificial Tears 1 drop ophthalmic twice daily p.r.n. for dry eyes. 17.Nystatin ointment 30 g ointment applied topical twice daily to cracked lips. 18.Multivitamin. 19.Hair and nail vitamin. 20.Chemo per Oncology. This discharge took less than 30 minutes. DICTATED BY: LYNN Laird/FREIDA Liban Cowan NP / [id number]
--- NOTE | ~2016-07-08 | PUL ---
[id number] [place]. [address] NAME: AMA ORTIZ : 47 STATUS : ADM IN PAT#: [id number] AGE: 70 ADM/REG DATE : 07/08/16 MR#: [id number] REPORT SERV DATE: 07/11/16 DICTATED BY: KAYLA ABERNATHY DATE: 07/11/16 REPORT STATUS : Draft TRANSCRIBED BY: MODL DATE: 07/11/16 PULMONARY FUNCTION TEST TEST: Overnight pulse oximetry started on room air but placed on 2 L nasal cannula. DATA: Total recording time 7 hours and 59 minutes. Mean pulse 79, mean oxygen saturation 95%. Oxygen saturation less than 88% is 4 minutes 36 seconds, however, oxygen was started. INTERPRETATION: This is an abnormal study as the patient has been started on oxygen therapy for nocturnal hypoxia during the test. The patient does have SpO2 graph concerning for underlying obstructive sleep apnea. If this is a clinical concern, we would recommend getting an outpatient polysomnogram, otherwise, 2 L nasal cannula is suffice. HFQ/MODL Kayla Abernathy MD / [id number] CC: Patrick Hennessy M.D. UNKNOWN
--- NOTE | ~2016-07-08 | HP ---
History And Physical [address] [facility]. [address] NAME: AMA ORTIZ : 47 STATUS : ADM IN [facility]#: [id number] AGE: 70 ADM/REG DATE : 07/08/16 MR#: [id number] REPORT SERV DATE: 07/08/16 DICTATED BY: BRIDGETT GARCIA DATE: 07/08/16 REPORT STATUS : Draft TRANSCRIBED BY: MODL DATE: 07/08/16 DATE OF ADMISSION: 07/08/2016 IDENTIFYING DATA: A 70-year-old white female, whose PCP is the [facility], medical oncologist, Dr. Lasha Kapoor, LATOYA Hunt. CHIEF COMPLAINT: Fever and suspected pneumonia. HISTORY OF PRESENT ILLNESS: This patient was hospitalized here 04/14/2016 through 04/17/2016 with right lower lobe community-acquired pneumonia. She was back here 05/19/2016 through 05/31/2016 with left-sided healthcare-associated pneumonia and shock. She was then here 06/25/2016 through 07/03/2016 with a right lung healthcare-associated pneumonia, small bowel obstruction, and atrial fibrillation. She went home on 07/03/2016, and states since then she has been steadily weaker. He states now she can hardly stand and when she walks, she has difficulty doing that, and this is new. He also states at home today she had a fever of 101.9, so he brought her to the emergency room. In the ER, her temp was 100.8, pulse 112. She was weak. Her potassium was noted to be very low. We were contacted to admit her to the hospital. REVIEW OF SYSTEMS: On review of systems, she has slight cough, mild chest pain anteriorly, mild shortness of breath, chronic abdominal soreness. She had some vomiting last night. No red or black color in it. She has occasional epistaxis and she had her NG tube here during her last hospitalization for small bowel obstruction. She has not passed any clots from her nose and has been intermittent. She has occasional dysuria. She has had many weeks of leg edema. She appears to be on diuretic Lasix at this time that was new. She denies sore throat, sputum production, diarrhea, rectal bleeding, melena, rash, headache, tick bites. She has a little bit of urinary hesitancy. She does not wear oxygen at home. ALLERGIES: NO KNOWN DRUG ALLERGIES. PAST MEDICAL HISTORY: She denies any history of diabetes, hypertension, asthma, COPD, myocardial infarction, stroke, peptic ulcer, liver disease, chronic kidney disease, thyroid disease, sleep apnea. The patient was diagnosed with a non-Hodgkin's lymphoma, treated with chemotherapy back in 2008. She also had radiation. She has a history of irritable bowel and chronic abdominal pain. She also has chronic back and chest wall pain, for which she is on potent narcotics. She reportedly had a history of seizure once when her sodium was low. She has breast cancer diagnosed in 2002. She has known metastasis to the lung and adrenal insufficiency thought due to metastasis and has been recently on a new chemo from Dr. Lasha Kapoor, but it is currently on hold since her last hospitalization in June, because of the pneumonia. She has had atrial fibrillation with rapid ventricular response in the past and she is on Eliquis currently. HOME MEDICATIONS: Eliquis 5 mg b.i.d., natural tears p.r.n., coenzyme Q 100 mg daily, History And Physical [address] [address] NAME: AMA ORTIZ : 47 STATUS : ADM IN PAT#: [id number] AGE: 70 ADM/REG DATE : 07/08/16 MR#: [id number] REPORT SERV DATE: 07/08/16 DICTATED BY: BRIDGETT GARCIA DATE: 07/08/16 REPORT STATUS : Draft TRANSCRIBED BY: MODAnnie DATE: 07/08/16 Cardizem CD 240 mg daily, Lasix 40 mg twice a day, hydrocortisone 10 mg t.i.d., Ativan a mg b.i.d. p.r.n. for anxiety, Remeron 30 mg at bedtime, morphine sulfate immediate release 15 mg q.4 hours p.r.n. breakthrough pain, OxyContin 30 mg q.8 hours scheduled, Centrum multivitamin once a day, Mycostatin ointment to the cracks on her lips daily p.r.n., fish oil 1000 mg daily, Zofran 8 mg q.8 hours p.r.n. nausea, Protonix 40 mg daily, KCl 20 mEq at bedtime, Florastor 250 mg daily. She takes a hair skin nails vitamin after supper and chemo from Dr. Lasha Kapoor, but she is currently on a break from that since her last hospitalization with infection. PAST SURGICAL HISTORY: She had breast cancer resection with mastectomy on the left side with a reconstruction and flap. She has had back surgery for disc. She has had cholecystectomy and laparoscopic evaluations for abdominal pain. She has had a port placed. She has had a hysterectomy as well as removal of benign breast nodules and lung biopsy. SOCIAL HISTORY: She is . is at the bedside. She lives with him. She used to work as a real estate transaction processor. She has no tobacco or alcohol intake history. She normally walks without any assistive device. FAMILY HISTORY: Mother in her 90s with dementia. Dad in his 40s with alcohol problems. Brother with heart disease in his 50s. DIAGNOSTIC DATA: EKG done today at 0943 hours reveals sinus tachycardia with occasional PVCs, heart rate overall is 107, there is nonspecific ST and T-wave changes and poor R-wave progression per my interpretation. Chest x-ray is a single portable reveals a right mid lung nodule, possible mild haziness right lung base, and to me it looks like she has some nodules in the upper left lung. Sodium 140, potassium 2.1, chloride 94, CO2 is 39, BUN 8, creatinine 0.75, glucose 98, calcium 8.2, total protein 5.3, albumin 2.1, alkaline phosphatase is 130, the rest of the CMP is unremarkable. Lactic acid 0.7. White count is 13.5, that was 14.9, when she was here on 07/02/2016. Hemoglobin is 9, platelets are 379,000. Protime is 15.9, INR 1.3. PTT is 34.4. Urinalysis, specific gravity 1.005, trace leukocyte esterase. The rest of it is unremarkable. PHYSICAL EXAMINATION: VITAL SIGNS: Temp is 100.8, pulse is 115, respirations 22, blood pressure 130/50, O2 saturation 93% on room air. GENERAL: A well-developed female, who appears chronically ill, but in no acute distress at the moment. HEENT: Head is atraumatic. Pupils are equal, round, and reactive to light. Extraocular motions are intact. No scleral icterus noted. Ear canals and TMs unremarkable. No inflammatory changes and normal hearing bilaterally. Nose shows small scabbed area and clot in the right naris. Midline septum nares on the left patent. Mouth is moist. Good gag. No redness of the throat, gums, or lips. NECK: Supple. No lymph node or thyroid enlargement. The carotids have good pulses. No bruits. LUNGS: With some crackles at the bases posteriorly, good air flow in the mid and upper lung whatley. Normal respiratory effort. HEART: Regular rate and rhythm without murmur, gallop, click, or rub. History And Physical [address] [address] NAME: AMA ORTIZ : 49 STATUS : ADM IN [facility]#: [id number] AGE: 70 ADM/REG DATE : 07/08/16 MR#: [id number] REPORT SERV DATE: 07/08/16 DICTATED BY: BRIDGETT GARCIA DATE: 07/08/16 REPORT STATUS : Draft TRANSCRIBED BY: FREIDA DATE: 07/08/16 ABDOMEN: Bowel sounds are positive. Soft, nondistended. Minimally tender diffusely. She has palpable mesh in the subcutaneous tissues. No inflammatory changes noted. No bruits noted. EXTREMITIES: She has 2+ pedal and calf edema bilaterally. No actively inflamed skin or joints. No clubbing or cyanosis. NEUROLOGICAL: Alert, oriented, cooperative with grossly normal mentation and speech. Her motor exam is 2/5 in her hands and arms, 1 to 2/5 in her thighs and calves. No Babinski. No clonus noted. Cranial nerves 2 through 12 grossly normal. ASSESSMENT: 1. Severe hypokalemia due to her diuretic Lasix. 2. Fever with no clear source, but she is immunocompromised and has had pneumonia three times this year, so I certainly worried about the possibility of an early pneumonia that is just not showing up on x-ray, also could be a line infection related to her port, although the site does not look inflamed, also could be related to metastatic cancer. 3. Contraction alkalosis from diuretics. 4. Muscle weakness related to her multiple recent hospitalizations for acute illness and her hypokalemia. 5. See past medical history. PLAN: Admit to the hospital. She confirms at this time limited DNR. She is okay with pressors and medicines to control heart rhythm problems or BiPAP, but no other aggressive care beyond that such as CPR, defibrillation, or intubation. We will follow up blood cultures. We will replace her potassium. We will empirically start her on broad-spectrum antibiotic coverage. We will follow up chest x-ray. We will have PT see her. We will follow up her potassium. is updated at the bedside at this time. GREGORIA/FREIDA Bridgett Garcia M.D. / [id number] CC: MD Lasha Gonzalez II, M.D. Alan Shikoh, M.D.
[2016-07-08 10:35] LABS: BASOPHILS 0.1 %; BASOPHILS ABSOLUTE 0.01 10/3/uL (0.0-0.16); EOSINOPHILS 0.7 %; EOSINOPHILS ABSOLUTE 0.09 10/3/uL (0.0-0.53); ER CBC TAT 0 Hrs 07 Mins; IMMATURE GRANULOCYTES 0.2 %; IMMATURE GRANULOCYTES ABSOLUTE 0.03 10/3/uL (0.0-0.11); LYMPHOCYTES 6.6 %; LYMPHOCYTES ABSOLUTE 0.89 10/3/uL (0.67-4.30); MEAN CORPUSCULAR HEMOGLOB 30.6 pg (26.0-34.0); MEAN CORPUSCULAR VOLUME 92.9 fL (80-100); MEAN PLATELET VOLUME 9.3 fL (9.2-13.0); MONOCYTES 11.1 %; MONOCYTES ABSOLUTE 1.49 10/3/uL (0.21-1.20); NEUTROPHILS 81.3 %; NEUTROPHILS ABSOLUTE 10.97 10/3/uL (2.02-8.40); PLATELET COUNT 379 10/3/uL (150-400); RBC DISTRIBUTION WIDTH 16.3 % (12.0-16.0); WHITE BLOOD CELLS 13.5 10/3/uL (4.5-10.5)
[2016-07-08 10:36] LABS: HEMATOCRIT 27.3 % (36.0-48.0); MANUAL DIFF NO %; RED CELL COUNT 2.94 10/6/uL (4.0-5.6)
[2016-07-08 10:43] LABS: INTERNATIONAL NORMAL RATI 1.3 UNITS (-); PARTIAL THROMBO TIME 34.4 SEC (22.5-37.2); PROTIME (NOT ORD) 15.9 SEC (12.0-14.5)
[2016-07-08 10:50] LABS: A/G RATIO 0.7 (0.7-1.9); ALBUMIN 2.1 G/DL (3.5-5.0); CALCIUM, SERUM 8.2 MG/DL (8.5-10.4); CREATININE 0.75 MG/DL (0.55-1.02); GFR AFRICAN AMERICAN 95 ML/MIN (>=60); GFR NON AFRICAN AMERICAN 82 ML/MIN (>=60); GLOBULIN 3.2 G/DL (2.5-4.1); SGOT(AST) 35 U/L (5-40); SGPT(ALT) 29 U/L (5-65); SODIUM, SERUM 140 MMOL/L (135-148); TOTAL BILIRUBIN 0.6 MG/DL (0-1.2); TOTAL PROTEIN 5.3 G/DL (6.0-8.5)
[2016-07-08 10:52] LABS: ALKALINE PHOSPHATASE 130 U/L (45-117); BUN (BLOOD UREA NITROGEN) 8 MG/DL (6-23); CHLORIDE, SERUM 94 MMOL/L (96-112); CO2 (CARBON DIOXIDE) 39 MMOL/L (24-34); GLUCOSE, SERUM 98 MG/DL (60-99); POTASSIUM, SERUM 2.1 MMOL/L (3.5-5.3)
[2016-07-08 11:16] LABS: LACTATE 0.7 MMOL/L (0.3-2.4)
[2016-07-08 11:33] LABS: PROCALCITONIN 0.16 ng/mL (<0.5)
[~2016-07-08 11:54] MED LIST changes: +ADVIL PO; +CHEMO IV; +FLORASTOR250 MG PO; +HAIR/SKIN/NAILS VIT PO; +KLOR-CON M2020 MEQ PO; +L40 PO; +MYCOSOINT TOP; +TEARS PURE OPH
[2016-07-08 12:12] LABS: ASCORBIC ACID (UR NOT ORDER) NEG (NEG); BILIRUBIN, URINE NEGATIVE (NEG); ER URINALYSIS TAT 0 Hrs 13 Mins; KETONE, URINE NEGATIVE (NEG); LEUKOCYTE ESTERASE(NOT OR TRACE (NEG); NITRITE (URINE) NEG (NEG); WBC (NOT ORDERED) (RFLEX) 4 (0-5)
[2016-07-08 15:45] LABS: TROPONIN I 0.06 NG/ML (<0.05)
[2016-07-09 05:34] LABS: BASOPHILS 0.2 %; BASOPHILS ABSOLUTE 0.01 10/3/uL (0.0-0.16); EOSINOPHILS 0.3 %; EOSINOPHILS ABSOLUTE 0.02 10/3/uL (0.0-0.53); HEMOGLOBIN 7.9 g/dL (12.0-16.0); IMMATURE GRANULOCYTES 0.3 %; IMMATURE GRANULOCYTES ABSOLUTE 0.02 10/3/uL (0.0-0.11); LYMPHOCYTES 11.9 %; LYMPHOCYTES ABSOLUTE 0.77 10/3/uL (0.67-4.30); MEAN CORPUS HGB CONC 32.6 g/dL (32.0-36.0); MEAN CORPUSCULAR HEMOGLOB 30.5 pg (26.0-34.0); MEAN CORPUSCULAR VOLUME 93.4 fL (80-100); MEAN PLATELET VOLUME 9.3 fL (9.2-13.0); MONOCYTES 9.7 %; MONOCYTES ABSOLUTE 0.63 10/3/uL (0.21-1.20); NEUTROPHILS 77.6 %; NEUTROPHILS ABSOLUTE 5.03 10/3/uL (2.02-8.40); PLATELET COUNT 324 10/3/uL (150-400); RBC DISTRIBUTION WIDTH 16.8 % (12.0-16.0); RED CELL COUNT 2.59 10/6/uL (4.0-5.6)
[2016-07-09 05:35] LABS: HEMATOCRIT 24.2 % (36.0-48.0); MANUAL DIFF NO %; WHITE BLOOD CELLS 6.5 10/3/uL (4.5-10.5)
[2016-07-09 05:50] LABS: BUN (BLOOD UREA NITROGEN) 8 MG/DL (6-23); CALCIUM, SERUM 7.7 MG/DL (8.5-10.4); CHLORIDE, SERUM 98 MMOL/L (96-112); CO2 (CARBON DIOXIDE) 39 MMOL/L (24-34); CREATININE 0.88 MG/DL (0.55-1.02); GFR AFRICAN AMERICAN 78 ML/MIN (>=60); GFR NON AFRICAN AMERICAN 68 ML/MIN (>=60); SODIUM, SERUM 140 MMOL/L (135-148)
[2016-07-09 05:53] LABS: GLUCOSE, SERUM 142 MG/DL (60-99); POTASSIUM, SERUM 2.8 MMOL/L (3.5-5.3)
[2016-07-10 04:03] LABS: BASOPHILS 0.1 %; BASOPHILS ABSOLUTE 0.01 10/3/uL (0.0-0.16); EOSINOPHILS 0.7 %; EOSINOPHILS ABSOLUTE 0.05 10/3/uL (0.0-0.53); HEMATOCRIT 24.5 % (36.0-48.0); HEMOGLOBIN 7.7 g/dL (12.0-16.0); IMMATURE GRANULOCYTES 0.3 %; IMMATURE GRANULOCYTES ABSOLUTE 0.02 10/3/uL (0.0-0.11); LYMPHOCYTES 8.2 %; LYMPHOCYTES ABSOLUTE 0.56 10/3/uL (0.67-4.30); MEAN CORPUS HGB CONC 31.4 g/dL (32.0-36.0); MEAN CORPUSCULAR HEMOGLOB 29.7 pg (26.0-34.0); MEAN CORPUSCULAR VOLUME 94.6 fL (80-100); MEAN PLATELET VOLUME 8.8 fL (9.2-13.0); MONOCYTES 14.1 %; MONOCYTES ABSOLUTE 0.96 10/3/uL (0.21-1.20); NEUTROPHILS 76.6 %; PLATELET COUNT 325 10/3/uL (150-400); RED CELL COUNT 2.59 10/6/uL (4.0-5.6); WHITE BLOOD CELLS 6.8 10/3/uL (4.5-10.5)
[2016-07-10 04:04] LABS: MANUAL DIFF NO %
[2016-07-10 04:21] LABS: BUN (BLOOD UREA NITROGEN) 8 MG/DL (6-23); CALCIUM, SERUM 7.1 MG/DL (8.5-10.4); CHLORIDE, SERUM 101 MMOL/L (96-112); CO2 (CARBON DIOXIDE) 36 MMOL/L (24-34); CREATININE 0.78 MG/DL (0.55-1.02); GFR AFRICAN AMERICAN 91 ML/MIN (>=60); GFR NON AFRICAN AMERICAN 78 ML/MIN (>=60); GLUCOSE, SERUM 127 MG/DL (60-99); POTASSIUM, SERUM 3.6 MMOL/L (3.5-5.3); SODIUM, SERUM 140 MMOL/L (135-148)
[2016-07-11 04:27] LABS: BASOPHILS 0.3 %; BASOPHILS ABSOLUTE 0.02 10/3/uL (0.0-0.16); EOSINOPHILS 1.2 %; EOSINOPHILS ABSOLUTE 0.08 10/3/uL (0.0-0.53); HEMATOCRIT 25.4 % (36.0-48.0); HEMOGLOBIN 8.1 g/dL (12.0-16.0); IMMATURE GRANULOCYTES 0.1 %; IMMATURE GRANULOCYTES ABSOLUTE 0.01 10/3/uL (0.0-0.11); LYMPHOCYTES 9.8 %; LYMPHOCYTES ABSOLUTE 0.67 10/3/uL (0.67-4.30); MANUAL DIFF NO %; MEAN CORPUS HGB CONC 31.9 g/dL (32.0-36.0); MEAN CORPUSCULAR HEMOGLOB 30.5 pg (26.0-34.0); MEAN CORPUSCULAR VOLUME 95.5 fL (80-100); MEAN PLATELET VOLUME 8.9 fL (9.2-13.0); MONOCYTES 12.6 %; MONOCYTES ABSOLUTE 0.86 10/3/uL (0.21-1.20); NEUTROPHILS ABSOLUTE 5.18 10/3/uL (2.02-8.40); PLATELET COUNT 327 10/3/uL (150-400); RBC DISTRIBUTION WIDTH 16.9 % (12.0-16.0); RED CELL COUNT 2.66 10/6/uL (4.0-5.6); WHITE BLOOD CELLS 6.8 10/3/uL (4.5-10.5)
[2016-07-11 04:37] LABS: BUN (BLOOD UREA NITROGEN) 8 MG/DL (6-23); CALCIUM, SERUM 7.7 MG/DL (8.5-10.4); CHLORIDE, SERUM 106 MMOL/L (96-112); CO2 (CARBON DIOXIDE) 34 MMOL/L (24-34); CREATININE 0.68 MG/DL (0.55-1.02); GFR AFRICAN AMERICAN 104 ML/MIN (>=60); GFR NON AFRICAN AMERICAN 90 ML/MIN (>=60); GLUCOSE, SERUM 119 MG/DL (60-99); POTASSIUM, SERUM 3.8 MMOL/L (3.5-5.3); SODIUM, SERUM 142 MMOL/L (135-148)
[2016-07-12 06:04] LABS: BASOPHILS 0.3 %; BASOPHILS ABSOLUTE 0.02 10/3/uL (0.0-0.16); EOSINOPHILS 1.7 %; HEMATOCRIT 26.2 % (36.0-48.0); HEMOGLOBIN 8.4 g/dL (12.0-16.0); IMMATURE GRANULOCYTES 0.2 %; IMMATURE GRANULOCYTES ABSOLUTE 0.01 10/3/uL (0.0-0.11); LYMPHOCYTES 17.1 %; LYMPHOCYTES ABSOLUTE 1.03 10/3/uL (0.67-4.30); MANUAL DIFF NO %; MEAN CORPUS HGB CONC 32.1 g/dL (32.0-36.0); MEAN CORPUSCULAR HEMOGLOB 30.4 pg (26.0-34.0); MEAN CORPUSCULAR VOLUME 94.9 fL (80-100); MEAN PLATELET VOLUME 8.7 fL (9.2-13.0); MONOCYTES 15.3 %; MONOCYTES ABSOLUTE 0.92 10/3/uL (0.21-1.20); NEUTROPHILS 65.4 %; NEUTROPHILS ABSOLUTE 3.93 10/3/uL (2.02-8.40); PLATELET COUNT 311 10/3/uL (150-400); RED CELL COUNT 2.76 10/6/uL (4.0-5.6)
[2016-07-12 06:17] LABS: ALBUMIN 2.1 G/DL (3.5-5.0); BUN (BLOOD UREA NITROGEN) 9 MG/DL (6-23); CALCIUM, SERUM 8.2 MG/DL (8.5-10.4); CHLORIDE, SERUM 107 MMOL/L (96-112); CO2 (CARBON DIOXIDE) 31 MMOL/L (24-34); CREATININE 0.71 MG/DL (0.55-1.02); GFR AFRICAN AMERICAN 101 ML/MIN (>=60); GFR NON AFRICAN AMERICAN 88 ML/MIN (>=60); GLUCOSE, SERUM 92 MG/DL (60-99); PHOSPHORUS, SERUM 2.1 MG/DL (2.5-4.5); POTASSIUM, SERUM 3.7 MMOL/L (3.5-5.3); SODIUM, SERUM 144 MMOL/L (135-148)
[2016-07-12] MEDS ORDERED: BAZA CREAM (11:39)
[2016-07-12 13:00] LABS: HSV DNA TYPE 1 Not Detected (NOTDET); HSV DNA TYPE 2 DETECTED (NOTDET)
[2016-08-03] MEDS ORDERED: ASABAYER PO (13:03)
[2016-08-06] MEDS ORDERED: LEVAQUIN750 MG PO (15:06)
[2016-09-24] MEDS ORDERED: CARTIA XT240 MG/24 PO (16:08)
[2016-09-24] MEDS ORDERED: CONSTULOSE PO (16:09)
[2016-09-24] MEDS ORDERED: SPIRO50 PO (16:10)
[2016-09-24] MEDS ORDERED: ELIQUIS 5 MG TAB5 MG PO (16:12)
[2016-09-24] MEDS ORDERED: REFRESH OPH SO0.3 ML OPH (16:14)
[2016-09-26] MEDS ORDERED: OMNICEF300 PO (09:55)
[2016-09-26] MEDS ORDERED: MIRALAX POWDER1 PKT PO (09:56)
[2016-10-26] MEDS ORDERED: LAN125 PO (09:08)
[2016-10-26] MEDS ORDERED: REM15 PO (09:15)
[2016-10-30] MEDS ORDERED: ASAB PO (10:52)
[2016-10-30] MEDS ORDERED: BISR PR (10:55)
[2016-10-30] MEDS ORDERED: LEVAQUIN750 MG PO (11:00)
== END 2016-07-12 13:43 | disposition home or self-care (01) | DRG 641 ==
LOC: ER 11:54 → 4EA 13:17
PROVIDERS: Hospitalist; Internal Medicine
DX: E87.6 Hypokalemia (principal); C78.00 Secondary malignant neoplasm of unspecified lung; F03.90 Unspecified dementia, unspecified severity, without behavioral disturbance, psychotic disturbance, mood disturbance, and anxiety; C50.919 Malignant neoplasm of unspecified site of unspecified female breast; I48.2 Chronic atrial fibrillation; E27.40 Unspecified adrenocortical insufficiency; Z79.01 Long term (current) use of anticoagulants
CPT/HCPCS: 71010; 80048; 80053; 80069; 80202; 81001; 83605; 83735; 83880; 84132; 84145; 84484; 85025; 85610; 85730; 87040; 87252; 87449; 87529; 87529-59; 93005; 94762; 96365; 96366; 96367; 96368; 97110-GP; 97162-GP; 99285; A9270-GY; G8978-CK-GP; G8979-CI-GP; J0692; J2550; J3370; J3475

== ENCOUNTER 2016-07-18 06:24 | Emergency (ER) | payer OTHER, MEDICARE ==
[2016-07-18 05:10] LABS: BASOPHILS 0.2 %; BASOPHILS ABSOLUTE 0.01 10/3/uL (0.0-0.16); EOSINOPHILS 0.2 %; EOSINOPHILS ABSOLUTE 0.01 10/3/uL (0.0-0.53); HEMATOCRIT 26.7 % (36.0-48.0); HEMOGLOBIN 8.9 g/dL (12.0-16.0); IMMATURE GRANULOCYTES 0.2 %; IMMATURE GRANULOCYTES ABSOLUTE 0.01 10/3/uL (0.0-0.11); LYMPHOCYTES 10.6 %; LYMPHOCYTES ABSOLUTE 0.55 10/3/uL (0.67-4.30); MEAN CORPUS HGB CONC 33.3 g/dL (32.0-36.0); MEAN CORPUSCULAR HEMOGLOB 30.3 pg (26.0-34.0); MEAN PLATELET VOLUME 8.3 fL (9.2-13.0); MONOCYTES 10.4 %; MONOCYTES ABSOLUTE 0.54 10/3/uL (0.21-1.20); NEUTROPHILS 78.4 %; NEUTROPHILS ABSOLUTE 4.07 10/3/uL (2.02-8.40); PLATELET COUNT 351 10/3/uL (150-400); RBC DISTRIBUTION WIDTH 15.4 % (12.0-16.0); RED CELL COUNT 2.94 10/6/uL (4.0-5.6); WHITE BLOOD CELLS 5.2 10/3/uL (4.5-10.5)
[2016-07-18 05:13] LABS: ER CBC TAT 0 Hrs 04 MinsNP; MANUAL DIFF NO %; MEAN CORPUSCULAR VOLUME 90.8 fL (80-100)
[2016-07-18 05:20] LABS: INTERNATIONAL NORMAL RATI 1.2 UNITS (-); PARTIAL THROMBO TIME 32.6 SEC (22.5-37.2); PROTIME (NOT ORD) 14.6 SEC (12.0-14.5)
[~2016-07-18 06:24] MED LIST changes: +BAZA CREAM
[2016-08-03] MEDS ORDERED: ASABAYER PO (13:03)
[2016-08-06] MEDS ORDERED: LEVAQUIN750 MG PO (15:06)
[2016-09-24] MEDS ORDERED: CARTIA XT240 MG/24 PO (16:08)
[2016-09-24] MEDS ORDERED: CONSTULOSE PO (16:09)
[2016-09-24] MEDS ORDERED: SPIRO50 PO (16:10)
[2016-09-24] MEDS ORDERED: ELIQUIS 5 MG TAB5 MG PO (16:12)
[2016-09-24] MEDS ORDERED: REFRESH OPH SO0.3 ML OPH (16:14)
[2016-09-26] MEDS ORDERED: OMNICEF300 PO (09:55)
[2016-09-26] MEDS ORDERED: MIRALAX POWDER1 PKT PO (09:56)
[2016-10-26] MEDS ORDERED: LAN125 PO (09:08)
[2016-10-26] MEDS ORDERED: REM15 PO (09:15)
[2016-10-30] MEDS ORDERED: ASAB PO (10:52)
[2016-10-30] MEDS ORDERED: BISR PR (10:55)
[2016-10-30] MEDS ORDERED: LEVAQUIN750 MG PO (11:00)
== END 2016-07-18 10:05 | disposition home or self-care (01) ==
LOC: ER 06:24
PROVIDERS: Specialist
PROC: 0W3Q7ZZ Control Bleeding in Respiratory Tract, Via Natural or Artificial Opening (ICD-10-PCS; principal; 2016-07-18)
DX: R04.0 Epistaxis (principal); D64.9 Anemia, unspecified; I48.91 Unspecified atrial fibrillation; Z85.3 Personal history of malignant neoplasm of breast; Z90.710 Acquired absence of both cervix and uterus; Z79.899 Other long term (current) drug therapy; Z85.118 Personal history of other malignant neoplasm of bronchus and lung
CPT/HCPCS: 85025; 85610; 85730; 99283; A9270-GY

== ENCOUNTER 2016-07-20 09:52 | Emergency (ER) | payer OTHER, MEDICARE ==
[2016-08-03] MEDS ORDERED: ASABAYER PO (13:03)
[2016-08-06] MEDS ORDERED: LEVAQUIN750 MG PO (15:06)
[2016-09-24] MEDS ORDERED: CARTIA XT240 MG/24 PO (16:08)
[2016-09-24] MEDS ORDERED: CONSTULOSE PO (16:09)
[2016-09-24] MEDS ORDERED: SPIRO50 PO (16:10)
[2016-09-24] MEDS ORDERED: ELIQUIS 5 MG TAB5 MG PO (16:12)
[2016-09-24] MEDS ORDERED: REFRESH OPH SO0.3 ML OPH (16:14)
[2016-09-26] MEDS ORDERED: OMNICEF300 PO (09:55)
[2016-09-26] MEDS ORDERED: MIRALAX POWDER1 PKT PO (09:56)
[2016-10-26] MEDS ORDERED: LAN125 PO (09:08)
[2016-10-26] MEDS ORDERED: REM15 PO (09:15)
[2016-10-30] MEDS ORDERED: ASAB PO (10:52)
[2016-10-30] MEDS ORDERED: BISR PR (10:55)
[2016-10-30] MEDS ORDERED: LEVAQUIN750 MG PO (11:00)
== END 2016-07-20 09:59 | disposition home or self-care (01) ==
LOC: ER 09:52
DX: Z48.00 Encounter for change or removal of nonsurgical wound dressing (principal); Z85.3 Personal history of malignant neoplasm of breast; Z79.891 Long term (current) use of opiate analgesic; Z79.899 Other long term (current) drug therapy
CPT/HCPCS: 99282